=== PATIENT | male | born 1980 | race Two or more races ===

== ENCOUNTER 2019-10-24 16:25 | Inpatient (IN) | payer OTHER ==
[~2019-10-24] VITALS: Ht 188 cm; Wt 90.9 kg
[2019-10-24] MEDS ORDERED: ONDANSETRON HCL 4 MG/2 ML VIAL IVP ONE (17:15)
[2019-10-24] MEDS ORDERED: SODIUM CHLORIDE 0.9% 1,000 ML IV ONE ×2 (17:15→18:45)
[2019-10-24] MEDS ORDERED: CloNIDine 0.1 MG/24 HOUR PATCH TD ONE (17:15)
[2019-10-24] MEDS ORDERED: CloNIDine HCL 0.1 MG TABLET PO ONE (17:15)
[2019-10-24 17:28] LABS: BASOPHILS % (AUTO) 0.3 % (0.0-2.0); EOSINOPHILS % (AUTO) 0 % (1.0-6.0); HEMATOCRIT 40.9 % (41-53); HEMOGLOBIN 13.8 g/dL (13.5-17.5); LYMPHOCYTES # (AUTO) 1.3 K/uL (1.0-4.8); LYMPHOCYTES % (AUTO) 23.1 % (22.0-44.0); MEAN CORPUSCULAR HGB CONC 33.7 G/dL (31.0-37.0); MEAN CORPUSCULAR VOLUME 86 fL (80-100); MONOCYTES # (AUTO) 0.6 K/uL (0.1-1.0); MONOCYTES % (AUTO) 10.2 % (2.0-9.0); NEUTROPHILS # (AUTO) 3.7 K/uL (1.8-7.7); NEUTROPHILS % (AUTO) 66.4 % (40.0-70.0); PLATELET COUNT (AUTO) 239 K/uL (150-450); RED BLOOD CELL COUNT(AUTO) 4.76 MIL/uL (4.50-5.90); RED CELL DISTRIBUTION WIDTH 14.2 % (11.5-14.5)
[2019-10-24 17:48] LABS: ANION GAP 9 mmol/L (8-16); CALCIUM, TOTAL 9.1 mg/dL (8.8-10.5); CARBON DIOXIDE 27 mmol/L (22-29); CHLORIDE 103 mmol/L (98-107); CREATININE 0.77 mg/dL (0.60-1.30); GLOMERULAR FILTR. RATE CALC > 60 mL/min (>60); GLUCOSE,RANDOM 95 mg/dL (70-110); POTASSIUM 4.3 mmol/L (3.5-5.1); SODIUM SERUM 139 mmol/L (136-145); UREA NITROGEN, BLOOD 12 mg/dL (7-18)
[2019-10-24 18:02] LABS: ALANINE AMINOTRANSFERASE 48 U/L (12-78); ALBUMIN 3.8 g/dL (3.4-5.0); ALKALINE PHOSPHATASE 82 U/L (46-116); ASPARTATE AMINOTRANSFERASE 38 U/L (15-37); BILIRUBIN,TOTAL 0.3 mg/dL (0.1-1.0); TOTAL PROTEIN, SERUM 7.7 g/dL (6.4-8.2)
[2019-10-24] MEDS ORDERED: MAGNESIUM HYDROXIDE SUSPENSION 30 ML UDCUP PO PRN (18:30)
[2019-10-24] MEDS ORDERED: ZOLPIDEM TARTRATE 5 MG TABLET PO PRN (18:30)
[2019-10-24] MEDS ORDERED: ACETAMINOPHEN 325 MG TABLET PO PRN (18:30)
[2019-10-24] MEDS ORDERED: ONDANSETRON HCL 4 MG/2 ML VIAL IVP PRN (18:30)
[2019-10-24 18:35] VITALS: BP 138/79
[2019-10-24] MEDS ORDERED: LORazepam 2 MG/ML VIAL IVP PRN (18:45)
[2019-10-24] MEDS ORDERED: INFLUENZA VIRUS VACCINE QVS 2019-20 (3YR+)/PF 60 MCG/0.5 ML SYRINGE IM ONE (19:00)
[2019-10-24 20:18] VITALS: BP 139/83
[2019-10-25 02:01] LABS: AMPHET/METH SCREEN,URINE POSITIVE (NEGATIVE); BARBITURATE SCREEN, URINE NEGATIVE (NEGATIVE); BENZODIAZEPINES SCREEN,URINE NEGATIVE (NEGATIVE); CANNABINOID SCREEN,URINE POSITIVE (NEGATIVE); COCAINE SCREEN,URINE NEGATIVE (NEGATIVE); METHADONE SCREEN, URINE NEGATIVE (NEGATIVE); OPIATE SCREEN,URINE POSITIVE (NEGATIVE)
[2019-10-25 02:05] LABS: PHENCYCLIDINE SCREEN,URINE NEGATIVE (NEGATIVE)
[2019-10-25 04:35] VITALS: BP 148/78
[2019-10-25 08:05] VITALS: BP 144/95
[2019-10-25] MEDS: FAMOTIDINE 20 MG TABLET PO SCH (08:42)
[2019-10-25] MEDS ORDERED: ACETAMINOPHEN 325 MG TABLET PO PRN (11:45)
[2019-10-25] MEDS ORDERED: TraZODone HCL 50 MG TABLET PO PRN (11:45)
[2019-10-25] MEDS ORDERED: HydrOXYzine PAMOATE 50 MG CAPSULE PO PRN (11:45)
[2019-10-25] MEDS ORDERED: PROMETHAZINE HCL 25 MG TABLET PO PRN (11:45)
[2019-10-25] MEDS ORDERED: IBUPROFEN 600 MG TABLET PO PRN ×2 (11:45)
[2019-10-25] MEDS ORDERED: BACLOFEN 10 MG TABLET PO PRN (11:45)
[2019-10-25] MEDS ORDERED: LOPERAMIDE HCL 2 MG/15 ML SUSPENSION UDCUP PO PRN (11:45)
[2019-10-25] MEDS ORDERED: MAG HYDROX/AL HYDROX/SIMETH ES 30 ML SUSPENSION UDCUP PO PRN ×2 (11:45)
[2019-10-25] MEDS: DICYCLOMINE HCL 10 MG CAPSULE PO PRN (12:10)
[2019-10-25] MEDS: LOPERAMIDE HCL 2 MG CAPSULE PO PRN (14:37)
[2019-10-25 15:58] VITALS: BP 137/87
[2019-10-25] MEDS: LORazepam 1 MG TABLET PO PRN (17:38)
[2019-10-25 20:24] VITALS: BP 127/77
[2019-10-26] VITALS (8 sets, daily range): BP systolic 114–145; BP diastolic 71–86
[2019-10-26] MEDS: FAMOTIDINE 20 MG TABLET PO SCH (08:09)
[2019-10-26] MEDS: MULTIVITAMINS WITH MINERALS, THERAPEUTIC TABLET PO SCH (08:13)
[2019-10-26] MEDS: DICYCLOMINE HCL 10 MG CAPSULE PO PRN (08:13)
[2019-10-26] MEDS: LORazepam 1 MG TABLET PO PRN (08:13)
[2019-10-26] MEDS: LOPERAMIDE HCL 2 MG CAPSULE PO PRN (12:20)
[2019-10-27 05:07] VITALS: BP 107/67
[2019-10-27 07:53] VITALS: BP 136/76
[2019-10-27] MEDS: FAMOTIDINE 20 MG TABLET PO SCH (08:19)
[2019-10-27] MEDS: MULTIVITAMINS WITH MINERALS, THERAPEUTIC TABLET PO SCH (08:19)
[2019-10-27 11:40] VITALS: BP 136/72
== END 2019-10-27 16:15 | DRG 897 ==
LOC: EMS 16:30 → 6S 18:08
PROVIDERS: ADMIT Internal Medicine; ATTEND Internal Medicine
DX: F11.23 Opioid dependence with withdrawal (principal); F17.210 Nicotine dependence, cigarettes, uncomplicated
CPT/HCPCS: 87045; 96374; G0480; J2060; J2405; J7030

== ENCOUNTER 2023-09-21 11:07 | Inpatient (IN) | payer OTHER ==
[~2023-09-21] VITALS: Ht 188 cm; Wt 92.0 kg
[2023-09-21] MEDS ORDERED: BISMATROL PO (11:52)
[2023-09-21] MEDS ORDERED: LOPE2TAB26 PO (11:52)
[2023-09-21] MEDS ORDERED: IBUP-1493 PO (11:52)
[2023-09-21] MEDS ORDERED: PROM25SU10 PR (11:52)
[2023-09-21] MEDS ORDERED: CLON0.1T2 PO (11:52)
[2023-09-21] MEDS ORDERED: TRAZ-186 PO (11:52)
[2023-09-21 13:12] LABS: BASOPHILS % (AUTO) 0.3 % (0.0-2.0); EOSINOPHILS % (AUTO) 0 % (1.0-6.0); HEMATOCRIT 42.4 % (41-53); HEMOGLOBIN 14.8 g/dL (13.5-17.5); LYMPHOCYTES # (AUTO) 1.2 K/uL (1.0-4.8); LYMPHOCYTES % (AUTO) 11.4 % (22.0-44.0); MEAN CORPUSCULAR HEMOGLOBIN 28.9 pg (26.0-34.0); MEAN CORPUSCULAR HGB CONC 34.8 G/dL (31.0-37.0); MEAN CORPUSCULAR VOLUME 83 fL (80-100); MONOCYTES % (AUTO) 9.5 % (2.0-9.0); NEUTROPHILS # (AUTO) 8.4 K/uL (1.8-7.7); NEUTROPHILS % (AUTO) 78.8 % (40.0-70.0); PLATELET COUNT (AUTO) 255 K/uL (150-450); RED CELL DISTRIBUTION WIDTH 14.3 % (11.5-14.5); WHITE BLOOD COUNT (AUTO) 10.7 K/uL (4.5-11.0)
[2023-09-21 13:18] LABS: ANION GAP 10 mmol/L (8-16); CALCIUM, TOTAL 9.2 mg/dL (8.8-10.5); CARBON DIOXIDE 23 mmol/L (22-29); CHLORIDE 105 mmol/L (98-107); CREATININE 0.66 mg/dL (0.60-1.30); GLOMERULAR FILTR. RATE CALC > 60 mL/min (>60); GLUCOSE,RANDOM 115 mg/dL (70-110); POTASSIUM 3.8 mmol/L (3.5-5.1); SODIUM SERUM 138 mmol/L (136-145); UREA NITROGEN, BLOOD 24 mg/dL (7-18)
[2023-09-21 13:24] LABS: ALANINE AMINOTRANSFERASE 34 U/L (12-78); ALBUMIN 3.9 g/dL (3.4-5.0); ALKALINE PHOSPHATASE 60 U/L (46-116); ASPARTATE AMINOTRANSFERASE 27 U/L (15-37); BILIRUBIN,TOTAL 0.8 mg/dL (0.1-1.0); TOTAL PROTEIN, SERUM 7.3 g/dL (6.4-8.2)
[2023-09-21 13:25] LABS: ALCOHOL, BLOOD (SERUM) < 3 mg/dL (0-10)
[2023-09-21] MEDS ORDERED: BISM-157 PO (16:09)
[2023-09-21] MEDS ORDERED: ONDANSETRON HCL 4 MG/2 ML VIAL IVP PRN (16:15)
[2023-09-21] MEDS ORDERED: MAGNESIUM HYDROXIDE SUSPENSION 30 ML UDCUP PO PRN (16:15)
[2023-09-21] MEDS ORDERED: SODIUM CHLORIDE 0.9% 1,000 ML IV ONE (16:15)
[2023-09-21 20:16] VITALS: BP 136/74; PULSE 94; RESP 20; TEMP 98.5
[2023-09-22] VITALS (9 sets, daily range): BP systolic 103–134; BP diastolic 62–89; PULSE 56–150; RESP 16–51; TEMP 97.5–102.6; O2SAT 96–99
[2023-09-22 00:23] LABS: APPEARANCE,URINE CLEAR (CLEAR); BILIRUBIN,URINE NEGATIVE (NEGATIVE); COLOR,URINE LIGHT YELLOW (YELLOW); GLUCOSE, URINE (UA) NEGATIVE (NEGATIVE); LEUKOCYTE ESTERASE ,URINE NEGATIVE (NEGATIVE); NITRATE,URINE NEGATIVE (NEGATIVE); OCCULT BLOOD,URINE SMALL (NEGATIVE); PROTEIN,URINE 30-70 mg/dL (NEGATIVE); SPECIFIC GRAVITIY, URINE 1.034 (1.003-1.030); UROBILINOGEN,URINE <=1.0 mg/dL (<=1.0)
[2023-09-22 00:31] LABS: AMPHET/METH SCREEN,URINE POSITIVE (NEGATIVE); BARBITURATE SCREEN, URINE NEGATIVE (NEGATIVE); BENZODIAZEPINES SCREEN,URINE NEGATIVE (NEGATIVE); CANNABINOID SCREEN,URINE NEGATIVE (NEGATIVE); COCAINE SCREEN,URINE NEGATIVE (NEGATIVE); METHADONE SCREEN, URINE NEGATIVE (NEGATIVE); OPIATE SCREEN,URINE NEGATIVE (NEGATIVE); PHENCYCLIDINE SCREEN,URINE NEGATIVE (NEGATIVE)
[2023-09-22] MEDS: PANTOPRAZOLE SODIUM 40 MG/VIAL IVP SCH ×2 (00:33→09:00)
[2023-09-22 00:54] LABS: ALCOHOL, URINE DRUG SCREEN NEGATIVE (NEGATIVE)
[2023-09-22 00:55] LABS: BACTERIA,URINE None Seen /HPF (None Seen); RBC,URINE 0-2 /HPF (0-2); SQUAMOUS EPITHELIAL CELL,UR None Seen /LPF (None Seen); WBC,URINE None Seen /HPF (0-5)
[2023-09-22 05:33] LABS: BASOPHILS % (AUTO) 0.3 % (0.0-2.0); EOSINOPHILS % (AUTO) 0 % (1.0-6.0); HEMATOCRIT 42.2 % (41-53); HEMOGLOBIN 14.3 g/dL (13.5-17.5); LYMPHOCYTES # (AUTO) 1.6 K/uL (1.0-4.8); LYMPHOCYTES % (AUTO) 9.2 % (22.0-44.0); MEAN CORPUSCULAR HEMOGLOBIN 28.4 pg (26.0-34.0); MEAN CORPUSCULAR HGB CONC 33.8 G/dL (31.0-37.0); MEAN CORPUSCULAR VOLUME 84 fL (80-100); MONOCYTES # (AUTO) 1.9 K/uL (0.1-1.0); MONOCYTES % (AUTO) 11.1 % (2.0-9.0); NEUTROPHILS # (AUTO) 13.8 K/uL (1.8-7.7); NEUTROPHILS % (AUTO) 79.4 % (40.0-70.0); PLATELET COUNT (AUTO) 308 K/uL (150-450); RED BLOOD CELL COUNT(AUTO) 5.02 MIL/uL (4.50-5.90); RED CELL DISTRIBUTION WIDTH 14.5 % (11.5-14.5); WHITE BLOOD COUNT (AUTO) 17.3 K/uL (4.5-11.0)
[2023-09-22] MEDS: FAMOTIDINE 20 MG TABLET PO SCH (09:00)
[2023-09-22] MEDS ORDERED: SODIUM CHLORIDE 0.9% 1,000 ML IV ONE (10:30)
[2023-09-22] MEDS ORDERED: ACETAMINOPHEN 1000 MG/ISO-OSM 100 ML IV ONE (10:30)
[2023-09-22 10:41] LABS: GLUCOMETER DEV NAME(LOC) 4E.2; GLUCOSE,POINT OF CARE 127 MG/DL (70-110)
[2023-09-22] MEDS ORDERED: IBUPROFEN 800 MG TABLET PO PRN (11:00)
[2023-09-22] MEDS: PIPERACILLIN/TAZO 3.375 GM/D5W 50 ML IV SCH ×2 (11:00→23:16)
[2023-09-22] MEDS ORDERED: PROMETHAZINE HCL 25 MG RECTAL SUPPOSITORY PR PRN (11:00)
[2023-09-22] MEDS ORDERED: BISMUTH SUBSALICYLATE 525 MG/30 ML SUSPENSION UDCUP PO PRN (11:00)
[2023-09-22 11:15] LABS: LACTIC ACID 1.9 mmol/L (0.4-2.0)
[2023-09-22] MEDS ORDERED: ACETAMINOPHEN 650 MG RECTAL SUPPOSITORY PR PRN (11:45)
[2023-09-22 13:01] LABS: ABG CARBOXYHEMOGLOBIN 0.4 % (0.0-1.5); ABG HCO3 22.1 mmol/L (22.0-26.0); ABG METHEMOGLOBIN 0.1 % (0.0-1.5); ABG OXYGEN CONTENT 22.9 mL/dL (15.0-23.0); ABG OXYGEN SATURATION 98.5 % (95.0-98.0); ABG PCO2 27 mmHg (35-45); ABG PH 7.464 (7.35-7.450); ABG TOTAL HEMOGLOBIN 16.5 G/dL (12.0-18.0); ALLEN TEST, BLOOD GAS Positive; SITE, BLOOD GAS RT RADIAL; SOURCE, BLOOD GAS ARTERIAL; TEMPERATURE, FAHRENHEIT, BG 100.5 FAHREN (96.0-98.6)
[2023-09-22 13:02] LABS: ABG A-A DIFF O2 547.5 mmHg (10-20.0); O2 DEVICE,BLOOD GAS NON REBREATHER (ROOM AIR)
[2023-09-22 14:21] LABS: GLUCOMETER DEV NAME(LOC) 5N.1C; GLUCOSE,POINT OF CARE 121 MG/DL (70-110)
[2023-09-22] MEDS: LORazepam 2 MG/ML VIAL IVP PRN (14:56)
[2023-09-22 16:41] LABS: BASOPHILS % (AUTO) 0.1 % (0.0-2.0); EOSINOPHILS % (AUTO) 0.1 % (1.0-6.0); HEMOGLOBIN 15.5 g/dL (13.5-17.5); LYMPHOCYTES # (AUTO) 1.2 K/uL (1.0-4.8); LYMPHOCYTES % (AUTO) 5.7 % (22.0-44.0); MEAN CORPUSCULAR HEMOGLOBIN 28.6 pg (26.0-34.0); MEAN CORPUSCULAR HGB CONC 33.6 G/dL (31.0-37.0); MEAN CORPUSCULAR VOLUME 85 fL (80-100); MONOCYTES # (AUTO) 2.4 K/uL (0.1-1.0); MONOCYTES % (AUTO) 11.1 % (2.0-9.0); NEUTROPHILS # (AUTO) 17.7 K/uL (1.8-7.7); PLATELET COUNT (AUTO) 311 K/uL (150-450); RED CELL DISTRIBUTION WIDTH 14.5 % (11.5-14.5); WHITE BLOOD COUNT (AUTO) 21.3 K/uL (4.5-11.0)
[2023-09-22 16:49] LABS: ANION GAP 15 mmol/L (8-16); CALCIUM, TOTAL 9.7 mg/dL (8.8-10.5); CARBON DIOXIDE 21 mmol/L (22-29); CHLORIDE 110 mmol/L (98-107); CREATININE 0.99 mg/dL (0.60-1.30); GLOMERULAR FILTR. RATE CALC > 60 mL/min (>60); GLUCOSE,RANDOM 147 mg/dL (70-110); SODIUM SERUM 146 mmol/L (136-145); UREA NITROGEN, BLOOD 33 mg/dL (7-18)
[2023-09-22 16:54] LABS: ALANINE AMINOTRANSFERASE 29 U/L (12-78); ALBUMIN 4.1 g/dL (3.4-5.0); ALKALINE PHOSPHATASE 59 U/L (46-116); ASPARTATE AMINOTRANSFERASE 20 U/L (15-37); BILIRUBIN,TOTAL 1.2 mg/dL (0.1-1.0); PHOSPHORUS 4.1 mg/dL (2.5-4.9)
[2023-09-22] MEDS ORDERED: ROCURONIUM BROMIDE 10 MG/ML 5 ML VIAL ONE (17:06)
[2023-09-22 17:16] LABS: ABG BASE EXCESS -4.5 mmol/L (-2.0-3.0); ABG CARBOXYHEMOGLOBIN 1.1 % (0.0-1.5); ABG METHEMOGLOBIN 0.1 % (0.0-1.5); ABG OXYGEN CONTENT 19.3 mL/dL (15.0-23.0); ABG OXYHEMOGLOBIN 83.1 % (94.0-100.0); ABG PCO2 30 mmHg (35-45); ABG PH 7.438 (7.35-7.450); ABG TOTAL HEMOGLOBIN 16.6 G/dL (12.0-18.0); SOURCE, BLOOD GAS ARTERIAL; TEMPERATURE, FAHRENHEIT, BG 102.5 FAHREN (96.0-98.6)
[2023-09-22 17:18] LABS: ABG OXYGEN SATURATION 84.1 % (95.0-98.0); ALLEN TEST, BLOOD GAS Positive; SITE, BLOOD GAS RT RADIAL
[2023-09-22 17:19] LABS: ABG A-A DIFF O2 620.3 mmHg (10-20.0); O2 DEVICE,BLOOD GAS BIPAP (ROOM AIR)
[2023-09-22 17:20] LABS: SPONTANEOUS VT, BG 851 ml
[2023-09-22] MEDS ORDERED: PROPOFOL 1000 MG/ISO-OSM 100 ML ONE (17:54)
[2023-09-22] MEDS ORDERED: ETOMIDATE 2 MG/ML 10 ML VIAL IVP ONE (18:15)
[2023-09-22] MEDS ORDERED: PROPOFOL 1% 20 ML VIAL IVP ONE (18:15)
[2023-09-22] MEDS ORDERED: ROCURONIUM BROMIDE 10 MG/ML 5 ML VIAL IVP ONE ×2 (18:15→20:15)
[2023-09-22] MEDS ORDERED: SODIUM CHLORIDE 0.9% 500 ML IV ONE (19:41)
[2023-09-22] MEDS: PANTOPRAZOLE SODIUM 80 MG in SODIUM CHLORIDE 0.9% 100 ML IV SCH (20:41)
[2023-09-22] MEDS: CloNIDine HCL 0.1 MG TABLET PO SCH (21:24)
[2023-09-22] MEDS: ACETAMINOPHEN 325 MG TABLET PO PRN (21:24)
[2023-09-22] MEDS: PROPOFOL 1000 MG/ISO-OSM 100 ML IV PRN (22:25)
[2023-09-22] MEDS ORDERED: MIDAZOLAM HCL 2 MG/2 ML VIAL IVP PRN (22:30)
[2023-09-22] MEDS ORDERED: SODIUM CHLORIDE 0.9% 1,000 ML IV SCH (22:30)
[2023-09-22] MEDS: DEXMEDETOMIDINE HCL 400 MCG in SODIUM CHLORIDE 0.9% 96 ML IV PRN (22:40)
[2023-09-23] VITALS (18 sets, daily range): BP systolic 94–117; BP diastolic 53–79; PULSE 95–127; RESP 18–53; TEMP 98.4–102; O2SAT 90–99
[2023-09-23 01:15] LABS: BASOPHILS % (AUTO) 0.1 % (0.0-2.0); EOSINOPHILS % (AUTO) 0 % (1.0-6.0); HEMATOCRIT 45.7 % (41-53); HEMOGLOBIN 14.9 g/dL (13.5-17.5); LYMPHOCYTES # (AUTO) 2.3 K/uL (1.0-4.8); MEAN CORPUSCULAR HEMOGLOBIN 28.4 pg (26.0-34.0); MEAN CORPUSCULAR HGB CONC 32.7 G/dL (31.0-37.0); MEAN CORPUSCULAR VOLUME 87 fL (80-100); MONOCYTES # (AUTO) 2.7 K/uL (0.1-1.0); MONOCYTES % (AUTO) 13.1 % (2.0-9.0); NEUTROPHILS # (AUTO) 15.5 K/uL (1.8-7.7); NEUTROPHILS % (AUTO) 75.8 % (40.0-70.0); PLATELET COUNT (AUTO) 280 K/uL (150-450); RED BLOOD CELL COUNT(AUTO) 5.26 MIL/uL (4.50-5.90); WHITE BLOOD COUNT (AUTO) 20.5 K/uL (4.5-11.0)
[2023-09-23 01:34] LABS: ABG BASE EXCESS -4.9 mmol/L (-2.0-3.0); ABG CARBOXYHEMOGLOBIN 0.3 % (0.0-1.5); ABG HCO3 19.9 mmol/L (22.0-26.0); ABG METHEMOGLOBIN 0.2 % (0.0-1.5); ABG OXYGEN SATURATION 99.7 % (95.0-98.0); ABG OXYHEMOGLOBIN 99.2 % (94.0-100.0); ABG PCO2 59 mmHg (35-45); ABG TOTAL HEMOGLOBIN 15.8 G/dL (12.0-18.0); PO2, ARTERIAL BG 398.3 mmHg (88.0-96.0); SOURCE, BLOOD GAS ARTERIAL; TEMPERATURE, FAHRENHEIT, BG 101.2 FAHREN (96.0-98.6)
[2023-09-23 02:04] LABS: O2 DEVICE,BLOOD GAS VENTILATOR (ROOM AIR); SITE, BLOOD GAS LFT RADIAL; VT, ABG 450 ml
[2023-09-23 02:05] LABS: PEEP,BG 5 cm H2O
[2023-09-23] MEDS: PROPOFOL 1000 MG/ISO-OSM 100 ML IV PRN ×6 (03:07→22:10)
[2023-09-23] MEDS: PANTOPRAZOLE SODIUM 80 MG in SODIUM CHLORIDE 0.9% 100 ML IV SCH ×2 (04:01→15:41)
[2023-09-23] MEDS: PIPERACILLIN/TAZO 3.375 GM/D5W 50 ML IV SCH ×2 (05:08→10:49)
[2023-09-23] MEDS: DEXMEDETOMIDINE HCL 400 MCG in SODIUM CHLORIDE 0.9% 96 ML IV PRN ×2 (05:09→22:39)
[2023-09-23 06:06] LABS: BASOPHILS % (AUTO) 0.1 % (0.0-2.0); EOSINOPHILS % (AUTO) 0 % (1.0-6.0); HEMATOCRIT 40.9 % (41-53); HEMOGLOBIN 14.1 g/dL (13.5-17.5); LYMPHOCYTES # (AUTO) 1.9 K/uL (1.0-4.8); LYMPHOCYTES % (AUTO) 9.7 % (22.0-44.0); MEAN CORPUSCULAR HEMOGLOBIN 29.4 pg (26.0-34.0); MEAN CORPUSCULAR HGB CONC 34.3 G/dL (31.0-37.0); MEAN CORPUSCULAR VOLUME 86 fL (80-100); MONOCYTES # (AUTO) 1.9 K/uL (0.1-1.0); MONOCYTES % (AUTO) 9.9 % (2.0-9.0); NEUTROPHILS # (AUTO) 15.3 K/uL (1.8-7.7); NEUTROPHILS % (AUTO) 80.3 % (40.0-70.0); PLATELET COUNT (AUTO) 275 K/uL (150-450); RED BLOOD CELL COUNT(AUTO) 4.79 MIL/uL (4.50-5.90); RED CELL DISTRIBUTION WIDTH 14.9 % (11.5-14.5); WHITE BLOOD COUNT (AUTO) 19.1 K/uL (4.5-11.0)
[2023-09-23 06:13] LABS: CALCIUM, TOTAL 9.1 mg/dL (8.8-10.5); CREATININE 1.42 mg/dL (0.60-1.30)
[2023-09-23] MEDS: FentaNYL CIT 1000MCG/0.9% NACL 100 ML IV PRN ×3 (08:01→18:50)
[2023-09-23] MEDS: CloNIDine HCL 0.1 MG TABLET PO SCH ×2 (08:42→21:01)
[2023-09-23] MEDS: FAMOTIDINE 20 MG TABLET PO SCH (08:42)
[2023-09-23 08:48] LABS: HEMATOCRIT 40.6 % (41-53); HEMOGLOBIN 13.6 g/dL (13.5-17.5)
[2023-09-23] MEDS: SODIUM CHLORIDE 0.45% 1,000 ML IV SCH ×2 (09:12→21:01)
[2023-09-23] MEDS: ACETAMINOPHEN 325 MG TABLET PO PRN (09:13)
[2023-09-23] MEDS: LORazepam 2 MG/ML VIAL IVP PRN (09:13)
[2023-09-23] MEDS ORDERED: VANCOMYCIN HCL 1.25 GM in DEXTROSE 5%-WATER 250 ML IV ONE (10:30)
[2023-09-23] MEDS: MIDAZOLAM HCL 100 MG in SODIUM CHLORIDE 0.9% 180 ML IV PRN (11:38)
[2023-09-23] MEDS: ACYCLOVIR 800 MG in DEXTROSE 5%-WATER 150 ML IV SCH ×2 (15:41→22:39)
[2023-09-23] MEDS: CefTRIAXone SODIUM 2 GM in DEXTROSE 5%-WATER 50 ML IV SCH (15:41)
[2023-09-23 17:23] LABS: HEMATOCRIT 38.3 % (41-53); HEMOGLOBIN 12.7 g/dL (13.5-17.5)
[2023-09-23 17:31] LABS: ANION GAP 9 mmol/L (8-16); CARBON DIOXIDE 24 mmol/L (22-29); CHLORIDE 111 mmol/L (98-107); CREATININE 1.28 mg/dL (0.60-1.30); GLOMERULAR FILTR. RATE CALC > 60 mL/min (>60); GLUCOSE,RANDOM 130 mg/dL (70-110); POTASSIUM 4.4 mmol/L (3.5-5.1); SODIUM SERUM 144 mmol/L (136-145); UREA NITROGEN, BLOOD 52 mg/dL (7-18)
[2023-09-23] MEDS: DOXYCYCLINE HYCLATE 100 MG in DEXTROSE 5%-WATER 100 ML IV SCH (18:06)
[2023-09-23] MEDS: MetroNIDAZOLE 500 MG/NACL 100 ML IV SCH (18:06)
[2023-09-23] MEDS: RINGERS SOLUTION,LACTATED 1,000 ML IV SCH (18:50)
[2023-09-23] MEDS ORDERED: LIDOCAINE/PF 1% 5 ML VIAL ONE (18:58)
[2023-09-23] MEDS ORDERED: LIDOCAINE/PF 1% 5 ML VIAL SQ ONE (19:30)
[2023-09-23] MEDS: VANCOMYCIN 1GM/WATER(PEG/NADA) 200 ML IV SCH (21:00)
[2023-09-23] MEDS ORDERED: SODIUM CHLORIDE 0.9% 500 ML IV ONE (22:42)
[2023-09-24] VITALS (20 sets, daily range): BP systolic 89–122; BP diastolic 46–84; PULSE 70–118; RESP 19–32; TEMP 97.1–100.1; O2SAT 93–100
[2023-09-24] MEDS: ACETAMINOPHEN 325 MG TABLET PO PRN ×2 (00:35→23:11)
[2023-09-24] MEDS: PANTOPRAZOLE SODIUM 80 MG in SODIUM CHLORIDE 0.9% 100 ML IV SCH ×3 (01:14→18:19)
[2023-09-24] MEDS: FentaNYL CIT 1000MCG/0.9% NACL 100 ML IV PRN ×5 (02:01→23:07)
[2023-09-24] MEDS: MetroNIDAZOLE 500 MG/NACL 100 ML IV SCH ×2 (02:06→08:56)
[2023-09-24] MEDS: MIDAZOLAM HCL 100 MG in SODIUM CHLORIDE 0.9% 180 ML IV PRN ×2 (03:13→18:18)
[2023-09-24] MEDS: CefTRIAXone SODIUM 2 GM in DEXTROSE 5%-WATER 50 ML IV SCH (03:13)
[2023-09-24] MEDS: PROPOFOL 1000 MG/ISO-OSM 100 ML IV PRN ×5 (03:26→23:06)
[2023-09-24] MEDS: DOXYCYCLINE HYCLATE 100 MG in DEXTROSE 5%-WATER 100 ML IV SCH ×2 (04:17→20:54)
[2023-09-24] MEDS: LORazepam 2 MG/ML VIAL IVP PRN ×4 (05:14→23:07)
[2023-09-24] MEDS: ACYCLOVIR 800 MG in DEXTROSE 5%-WATER 150 ML IV SCH ×4 (05:15→20:57)
[2023-09-24 06:01] LABS: HEMATOCRIT 32.7 % (41-53); HEMOGLOBIN 11.1 g/dL (13.5-17.5)
[2023-09-24 06:18] LABS: INR 1.1 (0.9-1.1); PROTHROMBIN TIME 11.7 SEC (9.4-11.6)
[2023-09-24 06:20] LABS: ANION GAP 8 mmol/L (8-16); CALCIUM, TOTAL 8.9 mg/dL (8.8-10.5); CARBON DIOXIDE 26 mmol/L (22-29); CHLORIDE 111 mmol/L (98-107); CREATININE 1.04 mg/dL (0.60-1.30); GLOMERULAR FILTR. RATE CALC > 60 mL/min (>60); GLUCOSE,RANDOM 130 mg/dL (70-110); POTASSIUM 4.3 mmol/L (3.5-5.1); SODIUM SERUM 145 mmol/L (136-145); UREA NITROGEN, BLOOD 42 mg/dL (7-18)
[2023-09-24] MEDS: RINGERS SOLUTION,LACTATED 1,000 ML IV SCH ×2 (08:52→21:37)
[2023-09-24] MEDS: CloNIDine HCL 0.1 MG TABLET PO SCH (08:56)
[2023-09-24] MEDS: FAMOTIDINE 20 MG TABLET PO SCH (08:57)
[2023-09-24] MEDS: SODIUM CHLORIDE 0.45% 1,000 ML IV SCH (09:45)
[2023-09-24] MEDS: VANCOMYCIN 1GM/WATER(PEG/NADA) 200 ML IV SCH ×3 (09:46→23:07)
[2023-09-24] MEDS: DEXMEDETOMIDINE HCL 400 MCG in SODIUM CHLORIDE 0.9% 96 ML IV PRN ×3 (11:33→23:39)
[2023-09-24 14:12] LABS: HEMATOCRIT 28.8 % (41-53); HEMOGLOBIN 9.9 g/dL (13.5-17.5)
[2023-09-24 14:41] LABS: APPEARANCE,CSF CLEAR (CLEAR); COLOR,CSF COLORLESS (COLORLESS); CSF TUBE NUMBER 1; NEUTROPHILS1,CSF 0 %
[2023-09-24 14:42] LABS: APPEARANCE2,CSF CLEAR (CLEAR); COLOR2,CSF COLORLESS (COLORLESS); CSF 2ND TUBE NUMBER 4; LYMPHOCYTES2,CSF 0 %; MONOCYTES2,CSF 0 %; NEUTROPHILS2,CSF 0 %
[2023-09-24 14:42] LABS: LYMPHOCYTES1,CSF 0 %; MONOCYTES1,CSF 0 %
[2023-09-24 14:43] LABS: OTHER CELLS,CSF 2ND 0
[2023-09-24 14:45] LABS: TOTAL PROTEIN, CSF 46 mg/dL (15-45)
[2023-09-24] MEDS ORDERED: LIDOCAINE/PF 1% 30 ML VIAL ONE (15:14)
[2023-09-24] MEDS ORDERED: LIDOCAINE 1% 30 ML/SOD BICARB 8.4% 4 ML SQ ONE (16:30)
[2023-09-24] MEDS: MetroNIDAZOLE 500 MG TABLET PO SCH ×2 (17:21→23:07)
[2023-09-24] MEDS ORDERED: SODIUM CHLORIDE 0.9% 250 ML IV ONE ×2 (20:35→21:15)
[2023-09-24] MEDS: DOXYCYCLINE HYCLATE 100 MG TABLET PO SCH (20:57)
[2023-09-24 21:01] LABS: HEMATOCRIT 27.3 % (41-53); HEMOGLOBIN 9.4 g/dL (13.5-17.5)
[2023-09-25] VITALS (16 sets, daily range): BP systolic 102–165; BP diastolic 53–88; PULSE 74–103; RESP 24–37; TEMP 98–101.2; O2SAT 98–100
[2023-09-25] MEDS: LORazepam 2 MG/ML VIAL IVP PRN (03:05)
[2023-09-25] MEDS: AMPICILLIN SODIUM/SULBACTAM NA 3 GM in SODIUM CHLORIDE 0.9% 100 ML IV SCH ×4 (03:10→20:56)
[2023-09-25] MEDS: ACETAMINOPHEN 325 MG TABLET PO PRN (03:21)
[2023-09-25] MEDS: PANTOPRAZOLE SODIUM 80 MG in SODIUM CHLORIDE 0.9% 100 ML IV SCH ×2 (04:03→14:03)
[2023-09-25] MEDS: PROPOFOL 1000 MG/ISO-OSM 100 ML IV PRN ×6 (04:59→22:51)
[2023-09-25] MEDS: ACYCLOVIR 800 MG in DEXTROSE 5%-WATER 150 ML IV SCH ×3 (04:59→22:07)
[2023-09-25] MEDS: FentaNYL CIT 1000MCG/0.9% NACL 100 ML IV PRN ×4 (05:00→18:45)
[2023-09-25] MEDS: DEXMEDETOMIDINE HCL 400 MCG in SODIUM CHLORIDE 0.9% 96 ML IV PRN (05:09)
[2023-09-25 05:17] LABS: BASOPHILS % (AUTO) 0.1 % (0.0-2.0); EOSINOPHILS % (AUTO) 2.1 % (1.0-6.0); HEMATOCRIT 28.3 % (41-53); HEMOGLOBIN 9.8 g/dL (13.5-17.5); LYMPHOCYTES # (AUTO) 0.7 K/uL (1.0-4.8); LYMPHOCYTES % (AUTO) 8.8 % (22.0-44.0); MEAN CORPUSCULAR HEMOGLOBIN 29.4 pg (26.0-34.0); MEAN CORPUSCULAR HGB CONC 34.7 G/dL (31.0-37.0); MEAN CORPUSCULAR VOLUME 85 fL (80-100); MONOCYTES # (AUTO) 0.7 K/uL (0.1-1.0); NEUTROPHILS # (AUTO) 6.8 K/uL (1.8-7.7); PLATELET COUNT (AUTO) 177 K/uL (150-450); RED BLOOD CELL COUNT(AUTO) 3.34 MIL/uL (4.50-5.90); RED CELL DISTRIBUTION WIDTH 14.4 % (11.5-14.5); WHITE BLOOD COUNT (AUTO) 8.4 K/uL (4.5-11.0)
[2023-09-25 05:32] LABS: ALANINE AMINOTRANSFERASE 26 U/L (12-78); ALBUMIN 2.1 g/dL (3.4-5.0); ALKALINE PHOSPHATASE 45 U/L (46-116); ANION GAP 7 mmol/L (8-16); ASPARTATE AMINOTRANSFERASE 44 U/L (15-37); BILIRUBIN,TOTAL 0.3 mg/dL (0.1-1.0); C-REACTIVE PROTEIN QUANT 13.61 mg/dL (0.00-0.30); CALCIUM, TOTAL 8.2 mg/dL (8.8-10.5); CARBON DIOXIDE 26 mmol/L (22-29); CHLORIDE 111 mmol/L (98-107); GLOMERULAR FILTR. RATE CALC > 60 mL/min (>60); GLUCOSE,RANDOM 104 mg/dL (70-110); POTASSIUM 3.5 mmol/L (3.5-5.1); SODIUM SERUM 144 mmol/L (136-145); TOTAL PROTEIN, SERUM 5.5 g/dL (6.4-8.2); UREA NITROGEN, BLOOD 23 mg/dL (7-18)
[2023-09-25] MEDS: VANCOMYCIN HCL 1.5 GM in DEXTROSE 5%-WATER 250 ML IV SCH ×2 (08:41→16:34)
[2023-09-25] MEDS: DOXYCYCLINE HYCLATE 100 MG TABLET PO SCH ×2 (08:42→20:52)
[2023-09-25] MEDS: FAMOTIDINE 20 MG TABLET PO SCH (08:42)
[2023-09-25] MEDS: MetroNIDAZOLE 500 MG TABLET PO SCH (08:42)
[2023-09-25] MEDS: RINGERS SOLUTION,LACTATED 1,000 ML IV SCH (10:49)
[2023-09-25] MEDS: MIDAZOLAM HCL 100 MG in SODIUM CHLORIDE 0.9% 180 ML IV PRN (10:51)
[2023-09-25 16:11] LABS: HEMATOCRIT 31.3 % (41-53); HEMOGLOBIN 10.6 g/dL (13.5-17.5)
[2023-09-25 18:06] LABS: S PNEUMO SOURCE Urine; STREP PNEUMONIAE AG URINE Negative (Negative)
[2023-09-25 22:20] LABS: HEMATOCRIT 28.9 % (41-53); HEMOGLOBIN 10.1 g/dL (13.5-17.5)
[2023-09-26] VITALS (15 sets, daily range): BP systolic 117–153; BP diastolic 72–91; PULSE 63–110; RESP 13–34; TEMP 99.5–101; O2SAT 93–99
[2023-09-26] MEDS: RINGERS SOLUTION,LACTATED 1,000 ML IV SCH ×2 (00:36→14:22)
[2023-09-26] MEDS: VANCOMYCIN HCL 1.5 GM in DEXTROSE 5%-WATER 250 ML IV SCH ×2 (00:38→18:18)
[2023-09-26] MEDS: PANTOPRAZOLE SODIUM 80 MG in SODIUM CHLORIDE 0.9% 100 ML IV SCH ×3 (01:16→22:09)
[2023-09-26] MEDS: ACETAMINOPHEN 325 MG TABLET PO PRN ×3 (02:01→20:50)
[2023-09-26] MEDS: FentaNYL CIT 1000MCG/0.9% NACL 100 ML IV PRN ×4 (02:52→22:26)
[2023-09-26] MEDS: PROPOFOL 1000 MG/ISO-OSM 100 ML IV PRN ×6 (03:34→22:27)
[2023-09-26] MEDS: AMPICILLIN SODIUM/SULBACTAM NA 3 GM in SODIUM CHLORIDE 0.9% 100 ML IV SCH ×4 (03:56→20:46)
[2023-09-26] MEDS: MIDAZOLAM HCL 100 MG in SODIUM CHLORIDE 0.9% 180 ML IV PRN ×2 (04:11→18:19)
[2023-09-26] MEDS: ACYCLOVIR 800 MG in DEXTROSE 5%-WATER 150 ML IV SCH ×3 (06:14→23:19)
[2023-09-26 06:54] LABS: BASOPHILS % (AUTO) 0.4 % (0.0-2.0); EOSINOPHILS % (AUTO) 3.2 % (1.0-6.0); HEMATOCRIT 28.1 % (41-53); HEMOGLOBIN 9.7 g/dL (13.5-17.5); LYMPHOCYTES # (AUTO) 1.1 K/uL (1.0-4.8); LYMPHOCYTES % (AUTO) 15.6 % (22.0-44.0); MEAN CORPUSCULAR HEMOGLOBIN 29.5 pg (26.0-34.0); MEAN CORPUSCULAR HGB CONC 34.7 G/dL (31.0-37.0); MEAN CORPUSCULAR VOLUME 85 fL (80-100); MONOCYTES # (AUTO) 0.6 K/uL (0.1-1.0); MONOCYTES % (AUTO) 8.2 % (2.0-9.0); NEUTROPHILS % (AUTO) 72.6 % (40.0-70.0); PLATELET COUNT (AUTO) 216 K/uL (150-450); RED BLOOD CELL COUNT(AUTO) 3.31 MIL/uL (4.50-5.90); RED CELL DISTRIBUTION WIDTH 14.2 % (11.5-14.5); WHITE BLOOD COUNT (AUTO) 6.9 K/uL (4.5-11.0)
[2023-09-26 07:26] LABS: ANION GAP 7 mmol/L (8-16); CARBON DIOXIDE 30 mmol/L (22-29); CHLORIDE 105 mmol/L (98-107); CREATININE 0.55 mg/dL (0.60-1.30); GLOMERULAR FILTR. RATE CALC > 60 mL/min (>60); GLUCOSE,RANDOM 92 mg/dL (70-110); SODIUM SERUM 142 mmol/L (136-145); UREA NITROGEN, BLOOD 7 mg/dL (7-18)
[2023-09-26 07:48] LABS: POTASSIUM 2.6 mmol/L (3.5-5.1)
[2023-09-26] MEDS ORDERED: POTASSIUM CHLORIDE 10% 40 MEQ/30 ML LIQUID UDCUP NG PRN (08:00)
[2023-09-26] MEDS ORDERED: POTASSIUM CHLORIDE 20 MEQ ER TABLET PO PRN ×2 (08:00)
[2023-09-26] MEDS ORDERED: WATER IV ONE (09:00)
[2023-09-26] MEDS ORDERED: VANCOMYCIN HCL IV ONE (09:00)
[2023-09-26] MEDS ORDERED: DEXTROSE 5% IV ONE (09:00)
[2023-09-26] MEDS: FAMOTIDINE 20 MG TABLET PO SCH (09:12)
[2023-09-26] MEDS: DOXYCYCLINE HYCLATE 100 MG TABLET PO SCH ×2 (09:13→20:51)
[2023-09-26] MEDS: POTASSIUM CHL 10 MEQ/WATER 50 ML IV PRN ×7 (09:14→22:40)
[2023-09-26] MEDS ORDERED: SODIUM CHLORIDE 0.9% 250 ML IV ONE (20:38)
[2023-09-26 21:22] LABS: ABG BASE EXCESS 8.5 mmol/L (-2.0-3.0); ABG CARBOXYHEMOGLOBIN 0.3 % (0.0-1.5); ABG HCO3 31.6 mmol/L (22.0-26.0); ABG METHEMOGLOBIN 0.3 % (0.0-1.5); ABG OXYGEN CONTENT 14.5 mL/dL (15.0-23.0); ABG OXYHEMOGLOBIN 93.4 % (94.0-100.0); ABG PCO2 40 mmHg (35-45); ABG PH 7.518 (7.35-7.450); ALLEN TEST, BLOOD GAS Positive; PO2, ARTERIAL BG 69.9 mmHg (88.0-96.0); SITE, BLOOD GAS RT RADIAL; SOURCE, BLOOD GAS ARTERIAL; TEMPERATURE, FAHRENHEIT, BG 98.6 FAHREN (96.0-98.6)
[2023-09-26 21:23] LABS: O2 DEVICE,BLOOD GAS VENTILATOR (ROOM AIR); PEEP,BG 0 cm H2O; VT, ABG 450 ml
[2023-09-27] VITALS (14 sets, daily range): BP systolic 120–137; BP diastolic 71–83; PULSE 97–114; RESP 24–36; TEMP 98.9–100.9; O2SAT 91–97
[2023-09-27] MEDS: VANCOMYCIN HCL 1.5 GM in DEXTROSE 5%-WATER 250 ML IV SCH ×3 (00:50→12:49)
[2023-09-27] MEDS: PROPOFOL 1000 MG/ISO-OSM 100 ML IV PRN ×7 (02:00→23:59)
[2023-09-27] MEDS ORDERED: SODIUM CHLORIDE 0.9% 250 ML IV ONE (03:18)
[2023-09-27] MEDS: POTASSIUM CHL 10 MEQ/WATER 50 ML IV PRN ×3 (03:20→04:30)
[2023-09-27] MEDS: RINGERS SOLUTION,LACTATED 1,000 ML IV SCH (03:49)
[2023-09-27] MEDS: FentaNYL CIT 1000MCG/0.9% NACL 100 ML IV PRN ×3 (03:56→16:21)
[2023-09-27] MEDS: AMPICILLIN SODIUM/SULBACTAM NA 3 GM in SODIUM CHLORIDE 0.9% 100 ML IV SCH ×4 (04:03→21:13)
[2023-09-27 05:21] LABS: BASOPHILS % (AUTO) 0.4 % (0.0-2.0); EOSINOPHILS % (AUTO) 3.4 % (1.0-6.0); HEMATOCRIT 28.3 % (41-53); HEMOGLOBIN 9.9 g/dL (13.5-17.5); LYMPHOCYTES # (AUTO) 1.1 K/uL (1.0-4.8); LYMPHOCYTES % (AUTO) 14.8 % (22.0-44.0); MEAN CORPUSCULAR HEMOGLOBIN 29.6 pg (26.0-34.0); MEAN CORPUSCULAR HGB CONC 35.1 G/dL (31.0-37.0); MEAN CORPUSCULAR VOLUME 85 fL (80-100); MONOCYTES # (AUTO) 0.6 K/uL (0.1-1.0); MONOCYTES % (AUTO) 8.5 % (2.0-9.0); NEUTROPHILS # (AUTO) 5.5 K/uL (1.8-7.7); NEUTROPHILS % (AUTO) 72.9 % (40.0-70.0); PLATELET COUNT (AUTO) 251 K/uL (150-450); RED BLOOD CELL COUNT(AUTO) 3.35 MIL/uL (4.50-5.90); RED CELL DISTRIBUTION WIDTH 14.4 % (11.5-14.5); WHITE BLOOD COUNT (AUTO) 7.5 K/uL (4.5-11.0)
[2023-09-27] MEDS: ACYCLOVIR 800 MG in DEXTROSE 5%-WATER 150 ML IV SCH ×3 (05:24→22:45)
[2023-09-27 05:37] LABS: ANION GAP 2 mmol/L (8-16); CALCIUM, TOTAL 8.1 mg/dL (8.8-10.5); CARBON DIOXIDE 34 mmol/L (22-29); CHLORIDE 106 mmol/L (98-107); CREATININE 0.49 mg/dL (0.60-1.30); GLOMERULAR FILTR. RATE CALC > 60 mL/min (>60); GLUCOSE,RANDOM 114 mg/dL (70-110); POTASSIUM 3.6 mmol/L (3.5-5.1); SODIUM SERUM 142 mmol/L (136-145); UREA NITROGEN, BLOOD 9 mg/dL (7-18); VANCOMYCIN,RANDOM 24.4 mcg/mL (25.0-50.0)
[2023-09-27] MEDS: PANTOPRAZOLE SODIUM 80 MG in SODIUM CHLORIDE 0.9% 100 ML IV SCH ×2 (07:13→16:21)
[2023-09-27] MEDS: FAMOTIDINE 20 MG TABLET PO SCH (08:46)
[2023-09-27] MEDS: DOXYCYCLINE HYCLATE 100 MG TABLET PO SCH ×2 (08:46→20:16)
[2023-09-27] MEDS: LORazepam 2 MG/ML VIAL IVP PRN (10:04)
[2023-09-27] MEDS: ACETAMINOPHEN 325 MG TABLET PO PRN ×2 (10:04→21:19)
[2023-09-27] MEDS: MIDAZOLAM HCL 100 MG in SODIUM CHLORIDE 0.9% 180 ML IV PRN (12:52)
[2023-09-27 16:37] LABS: % IRON SATURATION 16.1 % (30-44)
[2023-09-28] VITALS (14 sets, daily range): BP systolic 97–136; BP diastolic 53–94; PULSE 89–123; RESP 22–36; TEMP 99.1–100.5; O2SAT 89–98
[2023-09-28] MEDS: VANCOMYCIN HCL 1.5 GM in DEXTROSE 5%-WATER 250 ML IV SCH ×3 (00:09→17:06)
[2023-09-28] MEDS: MIDAZOLAM HCL 100 MG in SODIUM CHLORIDE 0.9% 180 ML IV PRN ×2 (00:17→14:53)
[2023-09-28] MEDS: RINGERS SOLUTION,LACTATED 1,000 ML IV SCH ×2 (01:54→22:03)
[2023-09-28 02:30] LABS: APPEARANCE,URINE CLEAR (CLEAR); BILIRUBIN,URINE NEGATIVE (NEGATIVE); COLOR,URINE LIGHT YELLOW (YELLOW); GLUCOSE, URINE (UA) NEGATIVE (NEGATIVE); KETONES,URINE NEGATIVE (NEGATIVE); LEUKOCYTE ESTERASE ,URINE NEGATIVE (NEGATIVE); NITRATE,URINE NEGATIVE (NEGATIVE); OCCULT BLOOD,URINE NEGATIVE (NEGATIVE); PROTEIN,URINE 30-70 mg/dL (NEGATIVE); SPECIFIC GRAVITIY, URINE 1.017 (1.003-1.030); UROBILINOGEN,URINE <=1.0 mg/dL (<=1.0)
[2023-09-28 02:45] LABS: BACTERIA,URINE None Seen /HPF (None Seen); RBC,URINE None Seen /HPF (0-2); SQUAMOUS EPITHELIAL CELL,UR None Seen /LPF (None Seen); WBC,URINE 0-2 /HPF (0-5)
[2023-09-28] MEDS: PANTOPRAZOLE SODIUM 80 MG in SODIUM CHLORIDE 0.9% 100 ML IV SCH ×3 (02:47→23:16)
[2023-09-28] MEDS: FentaNYL CIT 1000MCG/0.9% NACL 100 ML IV PRN ×4 (02:57→23:00)
[2023-09-28] MEDS: AMPICILLIN SODIUM/SULBACTAM NA 3 GM in SODIUM CHLORIDE 0.9% 100 ML IV SCH ×4 (02:58→22:09)
[2023-09-28] MEDS: PROPOFOL 1000 MG/ISO-OSM 100 ML IV PRN ×5 (03:39→22:59)
[2023-09-28] MEDS: ACYCLOVIR 800 MG in DEXTROSE 5%-WATER 150 ML IV SCH ×3 (05:30→22:09)
[2023-09-28 05:52] LABS: BASOPHILS % (AUTO) 0.4 % (0.0-2.0); EOSINOPHILS % (AUTO) 3.3 % (1.0-6.0); HEMATOCRIT 29.6 % (41-53); HEMOGLOBIN 10.3 g/dL (13.5-17.5); LYMPHOCYTES # (AUTO) 1.1 K/uL (1.0-4.8); LYMPHOCYTES % (AUTO) 11.3 % (22.0-44.0); MEAN CORPUSCULAR HEMOGLOBIN 29.4 pg (26.0-34.0); MEAN CORPUSCULAR HGB CONC 34.7 G/dL (31.0-37.0); MEAN CORPUSCULAR VOLUME 85 fL (80-100); MONOCYTES % (AUTO) 10.1 % (2.0-9.0); NEUTROPHILS # (AUTO) 7.4 K/uL (1.8-7.7); NEUTROPHILS % (AUTO) 74.9 % (40.0-70.0); PLATELET COUNT (AUTO) 299 K/uL (150-450); RED BLOOD CELL COUNT(AUTO) 3.49 MIL/uL (4.50-5.90); RED CELL DISTRIBUTION WIDTH 14.3 % (11.5-14.5); WHITE BLOOD COUNT (AUTO) 9.8 K/uL (4.5-11.0)
[2023-09-28 06:05] LABS: ANION GAP 9 mmol/L (8-16); CALCIUM, TOTAL 8.4 mg/dL (8.8-10.5); CARBON DIOXIDE 30 mmol/L (22-29); CHLORIDE 107 mmol/L (98-107); CREATININE 0.55 mg/dL (0.60-1.30); GLOMERULAR FILTR. RATE CALC > 60 mL/min (>60); GLUCOSE,RANDOM 97 mg/dL (70-110); POTASSIUM 3.8 mmol/L (3.5-5.1); SODIUM SERUM 146 mmol/L (136-145); UREA NITROGEN, BLOOD 12 mg/dL (7-18)
[2023-09-28] MEDS: LORazepam 2 MG/ML VIAL IVP PRN ×4 (07:28→22:11)
[2023-09-28] MEDS: DEXMEDETOMIDINE HCL 400 MCG in SODIUM CHLORIDE 0.9% 96 ML IV PRN ×2 (08:16→16:06)
[2023-09-28] MEDS: FAMOTIDINE 20 MG TABLET PO SCH (09:00)
[2023-09-28] MEDS: DOXYCYCLINE HYCLATE 100 MG TABLET PO SCH ×2 (09:00→22:09)
[2023-09-28] MEDS: QUEtiapine FUMARATE 50 MG ER TABLET PO SCH ×2 (09:20→22:09)
[2023-09-28 11:06] LABS: WEST NILE VIRUS IGM CSF Negative (Negative)
[2023-09-29] VITALS (15 sets, daily range): BP systolic 109–147; BP diastolic 53–87; PULSE 88–127; RESP 19–35; TEMP 98.4–100.5; O2SAT 5–100
[2023-09-29] MEDS: VANCOMYCIN HCL 1.5 GM in DEXTROSE 5%-WATER 250 ML IV SCH ×3 (00:04→16:04)
[2023-09-29] MEDS ORDERED: SODIUM CHLORIDE 0.9% 500 ML IV ONE (00:09)
[2023-09-29] MEDS: LORazepam 2 MG/ML VIAL IVP PRN ×4 (03:12→19:00)
[2023-09-29] MEDS: DEXMEDETOMIDINE HCL 400 MCG in SODIUM CHLORIDE 0.9% 96 ML IV PRN ×4 (03:16→22:01)
[2023-09-29] MEDS: PROPOFOL 1000 MG/ISO-OSM 100 ML IV PRN ×4 (03:35→22:11)
[2023-09-29] MEDS: AMPICILLIN SODIUM/SULBACTAM NA 3 GM in SODIUM CHLORIDE 0.9% 100 ML IV SCH ×4 (03:36→21:20)
[2023-09-29] MEDS: FentaNYL CIT 1000MCG/0.9% NACL 100 ML IV PRN ×3 (04:33→16:49)
[2023-09-29] MEDS: ACYCLOVIR 800 MG in DEXTROSE 5%-WATER 150 ML IV SCH ×3 (05:17→21:19)
[2023-09-29 06:09] LABS: BASOPHILS % (AUTO) 0.3 % (0.0-2.0); EOSINOPHILS % (AUTO) 3.9 % (1.0-6.0); HEMATOCRIT 48.7 % (41-53); HEMOGLOBIN 16.1 g/dL (13.5-17.5); LYMPHOCYTES # (AUTO) 0.9 K/uL (1.0-4.8); LYMPHOCYTES % (AUTO) 15.6 % (22.0-44.0); MEAN CORPUSCULAR HEMOGLOBIN 28.2 pg (26.0-34.0); MEAN CORPUSCULAR HGB CONC 33.1 G/dL (31.0-37.0); MEAN CORPUSCULAR VOLUME 85 fL (80-100); MONOCYTES # (AUTO) 0.8 K/uL (0.1-1.0); MONOCYTES % (AUTO) 14.4 % (2.0-9.0); NEUTROPHILS # (AUTO) 3.7 K/uL (1.8-7.7); NEUTROPHILS % (AUTO) 65.8 % (40.0-70.0); RED BLOOD CELL COUNT(AUTO) 5.72 MIL/uL (4.50-5.90); RED CELL DISTRIBUTION WIDTH 14.4 % (11.5-14.5); WHITE BLOOD COUNT (AUTO) 5.7 K/uL (4.5-11.0)
[2023-09-29 06:11] LABS: PLATELET COUNT (AUTO) 200 K/uL (150-450)
[2023-09-29 06:18] LABS: ANION GAP 8 mmol/L (8-16); CALCIUM, TOTAL 8.5 mg/dL (8.8-10.5); CARBON DIOXIDE 30 mmol/L (22-29); CHLORIDE 107 mmol/L (98-107); CREATININE 0.53 mg/dL (0.60-1.30); GLOMERULAR FILTR. RATE CALC > 60 mL/min (>60); GLUCOSE,RANDOM 90 mg/dL (70-110); POTASSIUM 4.6 mmol/L (3.5-5.1); SODIUM SERUM 145 mmol/L (136-145); UREA NITROGEN, BLOOD 13 mg/dL (7-18); VANCOMYCIN,RANDOM 18.4 mcg/mL (25.0-50.0)
[2023-09-29] MEDS: DOXYCYCLINE HYCLATE 100 MG TABLET PO SCH ×2 (08:02→20:28)
[2023-09-29] MEDS: FAMOTIDINE 20 MG TABLET PO SCH (08:02)
[2023-09-29] MEDS: QUEtiapine FUMARATE 50 MG ER TABLET PO SCH ×4 (08:02→20:26)
[2023-09-29] MEDS: MIDAZOLAM HCL 100 MG in SODIUM CHLORIDE 0.9% 180 ML IV PRN ×2 (08:03→20:51)
[2023-09-29] MEDS: PANTOPRAZOLE SODIUM 80 MG in SODIUM CHLORIDE 0.9% 100 ML IV SCH (08:05)
[2023-09-29] MEDS: PANTOPRAZOLE SODIUM 40 MG/VIAL IVP SCH ×2 (13:45→20:26)
[2023-09-29 14:52] LABS: PROTHROMBIN TIME 10.8 SEC (9.4-11.6)
[2023-09-29 14:53] LABS: ALBUMIN 2.1 g/dL (3.4-5.0); BILIRUBIN,DIRECT 0.1 mg/dL (0.00-0.20); BILIRUBIN,TOTAL 0.3 mg/dL (0.1-1.0); TOTAL PROTEIN, SERUM 6.2 g/dL (6.4-8.2)
[2023-09-29] MEDS: RINGERS SOLUTION,LACTATED 1,000 ML IV SCH (18:59)
[2023-09-29] MEDS: ACETAMINOPHEN 325 MG TABLET PO PRN (20:27)
[2023-09-30] VITALS (14 sets, daily range): BP systolic 105–127; BP diastolic 55–75; PULSE 83–109; RESP 23–38; TEMP 98.8–100.9; O2SAT 89–98
[2023-09-30] MEDS: VANCOMYCIN HCL 1.5 GM in DEXTROSE 5%-WATER 250 ML IV SCH ×2 (00:41→09:08)
[2023-09-30] MEDS: LORazepam 2 MG/ML VIAL IVP PRN ×3 (00:41→21:12)
[2023-09-30] MEDS: PROPOFOL 1000 MG/ISO-OSM 100 ML IV PRN ×6 (02:23→22:56)
[2023-09-30] MEDS: AMPICILLIN SODIUM/SULBACTAM NA 3 GM in SODIUM CHLORIDE 0.9% 100 ML IV SCH ×4 (04:33→22:26)
[2023-09-30] MEDS: DEXMEDETOMIDINE HCL 400 MCG in SODIUM CHLORIDE 0.9% 96 ML IV PRN ×4 (04:33→21:42)
[2023-09-30 06:22] LABS: BASOPHILS % (AUTO) 0.2 % (0.0-2.0); EOSINOPHILS % (AUTO) 2.6 % (1.0-6.0); HEMATOCRIT 28.1 % (41-53); HEMOGLOBIN 9.6 g/dL (13.5-17.5); LYMPHOCYTES # (AUTO) 0.9 K/uL (1.0-4.8); LYMPHOCYTES % (AUTO) 11.5 % (22.0-44.0); MEAN CORPUSCULAR HEMOGLOBIN 29.2 pg (26.0-34.0); MEAN CORPUSCULAR HGB CONC 34.2 G/dL (31.0-37.0); MEAN CORPUSCULAR VOLUME 85 fL (80-100); MONOCYTES # (AUTO) 0.8 K/uL (0.1-1.0); MONOCYTES % (AUTO) 10.2 % (2.0-9.0); NEUTROPHILS # (AUTO) 6.2 K/uL (1.8-7.7); NEUTROPHILS % (AUTO) 75.5 % (40.0-70.0); PLATELET COUNT (AUTO) 276 K/uL (150-450); RED BLOOD CELL COUNT(AUTO) 3.29 MIL/uL (4.50-5.90); RED CELL DISTRIBUTION WIDTH 14.2 % (11.5-14.5); WHITE BLOOD COUNT (AUTO) 8.2 K/uL (4.5-11.0)
[2023-09-30 06:30] LABS: ANION GAP 7 mmol/L (8-16); CALCIUM, TOTAL 8.7 mg/dL (8.8-10.5); CARBON DIOXIDE 32 mmol/L (22-29); CHLORIDE 109 mmol/L (98-107); CREATININE 0.57 mg/dL (0.60-1.30); GLOMERULAR FILTR. RATE CALC > 60 mL/min (>60); GLUCOSE,RANDOM 105 mg/dL (70-110); POTASSIUM 3.5 mmol/L (3.5-5.1); SODIUM SERUM 148 mmol/L (136-145); UREA NITROGEN, BLOOD 17 mg/dL (7-18)
[2023-09-30] MEDS: ACYCLOVIR 800 MG in DEXTROSE 5%-WATER 150 ML IV SCH ×2 (06:34→13:51)
[2023-09-30] MEDS: FentaNYL CIT 1000MCG/0.9% NACL 100 ML IV PRN ×2 (07:32→17:14)
[2023-09-30] MEDS: FAMOTIDINE 20 MG TABLET PO SCH (09:09)
[2023-09-30] MEDS: QUEtiapine FUMARATE 50 MG ER TABLET PO SCH ×4 (09:09→21:12)
[2023-09-30] MEDS: DOXYCYCLINE HYCLATE 100 MG TABLET PO SCH (09:09)
[2023-09-30] MEDS: PANTOPRAZOLE SODIUM 40 MG/VIAL IVP SCH ×2 (09:09→21:11)
[2023-09-30] MEDS: MIDAZOLAM HCL 100 MG in SODIUM CHLORIDE 0.9% 180 ML IV PRN ×2 (09:10→20:45)
[2023-09-30 11:54] LABS: CSF CRYPTO. NEOFORMANS PCR Not Detected (Not Detected); CSF CYTOMEGALOVIRUS PCR Not Detected (Not Detected); CSF ENTEROVIRUS PCR Not Detected (Not Detected); CSF ESCHERIHIA COLI K1 PCR Not Detected (Not Detected); CSF HAEMPHILUS INFLUENZAE PCR Not Detected (Not Detected); CSF HERPES SIMPLEX VIRUS 2 PCR Not Detected (Not Detected); CSF HERPES SIMPLEX VIRUS1 PCR Not Detected (Not Detected); CSF HUMAN HERPES VIRUS 6 PCR Not Detected (Not Detected); CSF HUMAN PARECHOVIRUS PCR Not Detected (Not Detected); CSF LISTERIA MONOCYTOGENES PCR Not Detected (Not Detected); CSF N.MENINGITIDIS PCR Not Detected (Not Detected); CSF STREP. AGALACTIAE PCR Not Detected (Not Detected); CSF STREP. PNEUMONIAE PCR Not Detected (Not Detected); CSF VARICELLA ZOSTER V PCR Not Detected (Not Detected)
[2023-09-30] MEDS: ACETAMINOPHEN 325 MG TABLET PO PRN (11:55)
[2023-09-30] MEDS ORDERED: LIDOCAINE 2% 11 ML JELLY TP ONE (12:00)
[2023-09-30] MEDS ORDERED: ACETYLCYSTEINE 10% 100 MG/ML 30 ML ORAL SOLUTION PO ONE (12:00)
[2023-09-30] MEDS: RINGERS SOLUTION,LACTATED 1,000 ML IV SCH (13:50)
[2023-09-30] MEDS: POTASSIUM CHL 10 MEQ/WATER 50 ML IV PRN (21:11)
[2023-09-30] MEDS: TraZODone HCL 100 MG TABLET PO PRN (21:11)
[2023-10-01] VITALS (19 sets, daily range): BP systolic 97–132; BP diastolic 60–77; PULSE 44–104; RESP 13–35; TEMP 98.5–99.9; O2SAT 94–99
[2023-10-01] MEDS: POTASSIUM CHL 10 MEQ/WATER 50 ML IV PRN ×4 (01:16→16:24)
[2023-10-01] MEDS: FentaNYL CIT 1000MCG/0.9% NACL 100 ML IV PRN ×3 (02:14→18:30)
[2023-10-01] MEDS: PROPOFOL 1000 MG/ISO-OSM 100 ML IV PRN ×5 (02:44→21:35)
[2023-10-01] MEDS: AMPICILLIN SODIUM/SULBACTAM NA 3 GM in SODIUM CHLORIDE 0.9% 100 ML IV SCH ×2 (03:50→09:41)
[2023-10-01 06:00] LABS: BASOPHILS % (AUTO) 0.1 % (0.0-2.0); HEMATOCRIT 29.2 % (41-53); HEMOGLOBIN 10.1 g/dL (13.5-17.5); LYMPHOCYTES # (AUTO) 1.6 K/uL (1.0-4.8); LYMPHOCYTES % (AUTO) 15.1 % (22.0-44.0); MEAN CORPUSCULAR HEMOGLOBIN 29.4 pg (26.0-34.0); MEAN CORPUSCULAR HGB CONC 34.5 G/dL (31.0-37.0); MEAN CORPUSCULAR VOLUME 85 fL (80-100); MONOCYTES # (AUTO) 0.9 K/uL (0.1-1.0); MONOCYTES % (AUTO) 8.3 % (2.0-9.0); NEUTROPHILS # (AUTO) 7.9 K/uL (1.8-7.7); NEUTROPHILS % (AUTO) 74.5 % (40.0-70.0); PLATELET COUNT (AUTO) 299 K/uL (150-450); RED BLOOD CELL COUNT(AUTO) 3.43 MIL/uL (4.50-5.90); RED CELL DISTRIBUTION WIDTH 14.3 % (11.5-14.5); WHITE BLOOD COUNT (AUTO) 10.6 K/uL (4.5-11.0)
[2023-10-01] MEDS: QUEtiapine FUMARATE 50 MG ER TABLET PO SCH ×2 (08:11→15:21)
[2023-10-01] MEDS: PANTOPRAZOLE SODIUM 40 MG/VIAL IVP SCH ×2 (08:11→20:45)
[2023-10-01] MEDS: FAMOTIDINE 20 MG TABLET PO SCH (08:11)
[2023-10-01] MEDS ORDERED: SODIUM CHLORIDE 0.9% 250 ML IV ONE (08:51)
[2023-10-01] MEDS: RINGERS SOLUTION,LACTATED 1,000 ML IV SCH (09:41)
[2023-10-01] MEDS: DEXMEDETOMIDINE HCL 400 MCG in SODIUM CHLORIDE 0.9% 96 ML IV PRN ×3 (09:45→18:29)
[2023-10-01] MEDS: MIDAZOLAM HCL 100 MG in SODIUM CHLORIDE 0.9% 180 ML IV PRN (09:46)
[2023-10-01] MEDS ORDERED: HEPARIN SODIUM,PORCINE 1,000 UNITS/ML VIAL IVP ONE (12:00)
[2023-10-01] MEDS: IPRATROPIUM BROMIDE 0.5 MG/2.5 ML NEB SOLUTION NEB PRN ×2 (14:33→19:25)
[2023-10-01] MEDS: ACETYLCYSTEINE 10% 100 MG/ML 4 ML NEB SOLUTION NEB SCH ×2 (14:33→19:25)
[2023-10-01] MEDS: ALBUTEROL SULFATE 2.5 MG/0.5 ML NEB SOLUTION NEB PRN ×2 (14:33→19:25)
[2023-10-01] MEDS: MetroNIDAZOLE 500 MG TABLET PO SCH (15:21)
[2023-10-01] MEDS: NAFCILLIN SODIUM 2 GM in DEXTROSE 5%-WATER 100 ML IV SCH ×2 (15:22→20:44)
[2023-10-01] MEDS: ACETAMINOPHEN 325 MG TABLET PO PRN ×2 (15:29→20:45)
[2023-10-01] MEDS: TraZODone HCL 100 MG TABLET PO PRN (20:45)
[2023-10-01] MEDS: LORazepam 2 MG/ML VIAL IVP PRN (20:46)
[2023-10-01] MEDS: QUEtiapine FUMARATE 25 MG TABLET PO SCH (20:52)
[2023-10-02] VITALS (25 sets, daily range): BP systolic 102–145; BP diastolic 55–87; PULSE 82–139; RESP 22–40; TEMP 98.8–100.7; O2SAT 93–99
[2023-10-02] MEDS: NAFCILLIN SODIUM 2 GM in DEXTROSE 5%-WATER 100 ML IV SCH ×4 (00:28→12:26)
[2023-10-02] MEDS: MetroNIDAZOLE 500 MG TABLET PO SCH ×3 (00:29→16:30)
[2023-10-02] MEDS: DEXMEDETOMIDINE HCL 400 MCG in SODIUM CHLORIDE 0.9% 96 ML IV PRN ×2 (00:50→23:16)
[2023-10-02] MEDS: FentaNYL CIT 1000MCG/0.9% NACL 100 ML IV PRN ×3 (01:01→20:14)
[2023-10-02] MEDS: PROPOFOL 1000 MG/ISO-OSM 100 ML IV PRN ×6 (01:04→21:09)
[2023-10-02] MEDS: ALBUTEROL SULFATE 2.5 MG/0.5 ML NEB SOLUTION NEB PRN ×4 (02:16→20:10)
[2023-10-02] MEDS: ACETYLCYSTEINE 10% 100 MG/ML 4 ML NEB SOLUTION NEB SCH ×4 (02:16→20:10)
[2023-10-02] MEDS: IPRATROPIUM BROMIDE 0.5 MG/2.5 ML NEB SOLUTION NEB PRN ×4 (02:16→20:10)
[2023-10-02] MEDS: LORazepam 2 MG/ML VIAL IVP PRN ×2 (03:53→20:13)
[2023-10-02] MEDS: RINGERS SOLUTION,LACTATED 1,000 ML IV SCH (03:59)
[2023-10-02] MEDS: ACETAMINOPHEN 325 MG TABLET PO PRN ×2 (04:04→21:56)
[2023-10-02] MEDS: QUEtiapine FUMARATE 25 MG TABLET PO SCH ×3 (08:48→20:13)
[2023-10-02] MEDS: PANTOPRAZOLE SODIUM 40 MG/VIAL IVP SCH ×2 (08:48→20:39)
[2023-10-02] MEDS: FAMOTIDINE 20 MG TABLET PO SCH (08:49)
[2023-10-02] MEDS: PIPERACILLIN/TAZO 3.375 GM/D5W 50 ML IV SCH ×2 (16:30→20:13)
[2023-10-02] MEDS: TraZODone HCL 100 MG TABLET PO PRN (23:14)
[2023-10-03] VITALS (24 sets, daily range): BP systolic 93–140; BP diastolic 54–78; PULSE 85–124; RESP 23–35; TEMP 98.8–100.5; O2SAT 88–100
[2023-10-03] MEDS: LORazepam 2 MG/ML VIAL IVP PRN ×5 (00:06→18:31)
[2023-10-03] MEDS: MIDAZOLAM HCL 100 MG in SODIUM CHLORIDE 0.9% 180 ML IV PRN ×3 (00:10→22:37)
[2023-10-03] MEDS: PROPOFOL 1000 MG/ISO-OSM 100 ML IV PRN ×7 (00:31→22:36)
[2023-10-03] MEDS: ALBUTEROL SULFATE 2.5 MG/0.5 ML NEB SOLUTION NEB PRN ×4 (01:38→19:30)
[2023-10-03] MEDS: IPRATROPIUM BROMIDE 0.5 MG/2.5 ML NEB SOLUTION NEB PRN ×4 (01:38→19:30)
[2023-10-03] MEDS: ACETYLCYSTEINE 10% 100 MG/ML 4 ML NEB SOLUTION NEB SCH ×4 (01:39→19:32)
[2023-10-03] MEDS: FentaNYL CIT 1000MCG/0.9% NACL 100 ML IV PRN ×4 (01:41→19:55)
[2023-10-03] MEDS: RINGERS SOLUTION,LACTATED 1,000 ML IV SCH ×2 (02:42→23:05)
[2023-10-03] MEDS: PIPERACILLIN/TAZO 3.375 GM/D5W 50 ML IV SCH ×2 (03:59→09:39)
[2023-10-03] MEDS: ACETAMINOPHEN 325 MG TABLET PO PRN ×2 (05:25→20:49)
[2023-10-03 05:55] LABS: BASOPHILS % (AUTO) 0.1 % (0.0-2.0); EOSINOPHILS % (AUTO) 1.5 % (1.0-6.0); HEMATOCRIT 28.7 % (41-53); HEMOGLOBIN 9.6 g/dL (13.5-17.5); LYMPHOCYTES # (AUTO) 1.1 K/uL (1.0-4.8); LYMPHOCYTES % (AUTO) 6.3 % (22.0-44.0); MEAN CORPUSCULAR HEMOGLOBIN 28.9 pg (26.0-34.0); MEAN CORPUSCULAR HGB CONC 33.3 G/dL (31.0-37.0); MEAN CORPUSCULAR VOLUME 87 fL (80-100); MONOCYTES # (AUTO) 1.1 K/uL (0.1-1.0); MONOCYTES % (AUTO) 6.4 % (2.0-9.0); NEUTROPHILS # (AUTO) 14.8 K/uL (1.8-7.7); PLATELET COUNT (AUTO) 311 K/uL (150-450); RED BLOOD CELL COUNT(AUTO) 3.32 MIL/uL (4.50-5.90); RED CELL DISTRIBUTION WIDTH 14.5 % (11.5-14.5); WHITE BLOOD COUNT (AUTO) 17.3 K/uL (4.5-11.0)
[2023-10-03 06:02] LABS: ANION GAP 8 mmol/L (8-16); CALCIUM, TOTAL 8.8 mg/dL (8.8-10.5); CARBON DIOXIDE 29 mmol/L (22-29); CHLORIDE 106 mmol/L (98-107); CREATININE 0.53 mg/dL (0.60-1.30); GLOMERULAR FILTR. RATE CALC > 60 mL/min (>60); GLUCOSE,RANDOM 112 mg/dL (70-110); POTASSIUM 3.8 mmol/L (3.5-5.1); SODIUM SERUM 143 mmol/L (136-145); UREA NITROGEN, BLOOD 15 mg/dL (7-18)
[2023-10-03 06:47] LABS: NEUTROPHILS % (AUTO) 85.7 % (40.0-70.0)
[2023-10-03] MEDS: PANTOPRAZOLE SODIUM 40 MG/VIAL IVP SCH ×2 (08:06→20:51)
[2023-10-03] MEDS: QUEtiapine FUMARATE 25 MG TABLET PO SCH ×3 (08:07→20:49)
[2023-10-03] MEDS: FAMOTIDINE 20 MG TABLET PO SCH (08:07)
[2023-10-03] MEDS: DEXMEDETOMIDINE HCL 400 MCG in SODIUM CHLORIDE 0.9% 96 ML IV PRN ×2 (08:40→19:50)
[2023-10-03] MEDS: LEVOFLOXACIN 750 MG/D5% WATER 150 ML IV SCH (14:16)
[2023-10-03] MEDS: NAFCILLIN SODIUM 2 GM in DEXTROSE 5%-WATER 100 ML IV SCH ×3 (14:17→23:05)
[2023-10-03 16:26] LABS: ABG A-A DIFF O2 252.6 mmHg (10-20.0); ABG BASE EXCESS 3.6 mmol/L (-2.0-3.0); ABG CARBOXYHEMOGLOBIN 0.3 % (0.0-1.5); ABG HCO3 27.5 mmol/L (22.0-26.0); ABG METHEMOGLOBIN 0.3 % (0.0-1.5); ABG OXYGEN CONTENT 12.8 mL/dL (15.0-23.0); ABG OXYHEMOGLOBIN 91.4 % (94.0-100.0); ABG PCO2 38 mmHg (35-45); ABG PH 7.471 (7.35-7.450); ABG TOTAL HEMOGLOBIN 9.9 G/dL (12.0-18.0); ALLEN TEST, BLOOD GAS Positive; O2 DEVICE,BLOOD GAS VENTILATOR (ROOM AIR); PO2, ARTERIAL BG 61.2 mmHg (88.0-96.0); SITE, BLOOD GAS LFT RADIAL; SOURCE, BLOOD GAS ARTERIAL; TEMPERATURE, FAHRENHEIT, BG 98.2 FAHREN (96.0-98.6); VT, ABG 450 ml
[2023-10-03 16:27] LABS: PEEP,BG 4 cm H2O
[2023-10-03] MEDS: MetroNIDAZOLE 500 MG TABLET PO SCH (16:28)
[2023-10-03] MEDS ORDERED: SODIUM CHLORIDE 0.9% 250 ML IV ONE (23:09)
[2023-10-04] VITALS (26 sets, daily range): BP systolic 99–131; BP diastolic 51–70; PULSE 76–116; RESP 16–33; TEMP 98.1–100.4; O2SAT 90–100
[2023-10-04] MEDS: MetroNIDAZOLE 500 MG TABLET PO SCH ×3 (00:45→15:03)
[2023-10-04] MEDS: FentaNYL CIT 1000MCG/0.9% NACL 100 ML IV PRN ×5 (01:07→21:36)
[2023-10-04] MEDS: ACETYLCYSTEINE 10% 100 MG/ML 4 ML NEB SOLUTION NEB SCH ×4 (01:26→19:28)
[2023-10-04] MEDS: IPRATROPIUM BROMIDE 0.5 MG/2.5 ML NEB SOLUTION NEB PRN ×4 (01:26→19:28)
[2023-10-04] MEDS: ALBUTEROL SULFATE 2.5 MG/0.5 ML NEB SOLUTION NEB PRN ×4 (01:26→19:28)
[2023-10-04] MEDS: PROPOFOL 1000 MG/ISO-OSM 100 ML IV PRN ×6 (03:16→22:33)
[2023-10-04] MEDS: NAFCILLIN SODIUM 2 GM in DEXTROSE 5%-WATER 100 ML IV SCH ×6 (03:16→22:35)
[2023-10-04 05:12] LABS: BASOPHILS % (AUTO) 0.2 % (0.0-2.0); HEMATOCRIT 25.4 % (41-53); HEMOGLOBIN 8.8 g/dL (13.5-17.5); LYMPHOCYTES # (AUTO) 1.2 K/uL (1.0-4.8); LYMPHOCYTES % (AUTO) 10.4 % (22.0-44.0); MEAN CORPUSCULAR HEMOGLOBIN 29.2 pg (26.0-34.0); MEAN CORPUSCULAR HGB CONC 34.4 G/dL (31.0-37.0); MEAN CORPUSCULAR VOLUME 85 fL (80-100); MONOCYTES # (AUTO) 0.6 K/uL (0.1-1.0); MONOCYTES % (AUTO) 5.7 % (2.0-9.0); NEUTROPHILS % (AUTO) 80.7 % (40.0-70.0); PLATELET COUNT (AUTO) 261 K/uL (150-450); RED CELL DISTRIBUTION WIDTH 14.8 % (11.5-14.5); WHITE BLOOD COUNT (AUTO) 11.1 K/uL (4.5-11.0)
[2023-10-04] MEDS: DEXMEDETOMIDINE HCL 400 MCG in SODIUM CHLORIDE 0.9% 96 ML IV PRN ×2 (06:32→17:06)
[2023-10-04] MEDS: PANTOPRAZOLE SODIUM 40 MG/VIAL IVP SCH ×2 (08:07→21:04)
[2023-10-04] MEDS: FAMOTIDINE 20 MG TABLET PO SCH (08:07)
[2023-10-04] MEDS: LORazepam 2 MG/ML VIAL IVP PRN ×2 (08:07→13:21)
[2023-10-04] MEDS: QUEtiapine FUMARATE 25 MG TABLET PO SCH ×3 (08:08→21:04)
[2023-10-04 09:58] LABS: ALANINE AMINOTRANSFERASE 51 U/L (12-78); ALBUMIN 1.9 g/dL (3.4-5.0); ALKALINE PHOSPHATASE 75 U/L (46-116); ANION GAP 6 mmol/L (8-16); ASPARTATE AMINOTRANSFERASE 25 U/L (15-37); BILIRUBIN,TOTAL 0.3 mg/dL (0.1-1.0); CALCIUM, TOTAL 8.4 mg/dL (8.8-10.5); CARBON DIOXIDE 29 mmol/L (22-29); CHLORIDE 106 mmol/L (98-107); CREATININE 0.47 mg/dL (0.60-1.30); GLOMERULAR FILTR. RATE CALC > 60 mL/min (>60); GLUCOSE,RANDOM 125 mg/dL (70-110); POTASSIUM 3.9 mmol/L (3.5-5.1); SODIUM SERUM 141 mmol/L (136-145); UREA NITROGEN, BLOOD 14 mg/dL (7-18)
[2023-10-04] MEDS: LEVOFLOXACIN 750 MG/D5% WATER 150 ML IV SCH (13:24)
[2023-10-04] MEDS ORDERED: SODIUM CHLORIDE 0.9% 250 ML IV ONE (16:02)
[2023-10-04] MEDS: RINGERS SOLUTION,LACTATED 1,000 ML IV SCH (17:08)
[2023-10-04] MEDS: MIDAZOLAM HCL 100 MG in SODIUM CHLORIDE 0.9% 180 ML IV PRN (22:43)
[2023-10-05] VITALS (18 sets, daily range): BP systolic 87–137; BP diastolic 37–86; PULSE 83–103; RESP 11–25; TEMP 96–100.6; O2SAT 94–100
[2023-10-05] MEDS: MetroNIDAZOLE 500 MG TABLET PO SCH ×4 (00:08→23:57)
[2023-10-05] MEDS: DEXMEDETOMIDINE HCL 400 MCG in SODIUM CHLORIDE 0.9% 96 ML IV PRN ×3 (00:10→22:29)
[2023-10-05] MEDS: ALBUTEROL SULFATE 2.5 MG/0.5 ML NEB SOLUTION NEB PRN ×3 (01:26→20:23)
[2023-10-05] MEDS: IPRATROPIUM BROMIDE 0.5 MG/2.5 ML NEB SOLUTION NEB PRN ×3 (01:26→20:23)
[2023-10-05] MEDS: ACETYLCYSTEINE 10% 100 MG/ML 4 ML NEB SOLUTION NEB SCH ×4 (01:26→20:23)
[2023-10-05] MEDS: PROPOFOL 1000 MG/ISO-OSM 100 ML IV PRN ×3 (02:13→09:44)
[2023-10-05] MEDS: NAFCILLIN SODIUM 2 GM in DEXTROSE 5%-WATER 100 ML IV SCH ×6 (02:43→22:28)
[2023-10-05] MEDS: FentaNYL CIT 1000MCG/0.9% NACL 100 ML IV PRN ×2 (04:01→09:52)
[2023-10-05 06:03] LABS: BASOPHILS % (AUTO) 0.6 % (0.0-2.0); EOSINOPHILS % (AUTO) 4.7 % (1.0-6.0); HEMATOCRIT 22.1 % (41-53); HEMOGLOBIN 7.6 g/dL (13.5-17.5); LYMPHOCYTES # (AUTO) 0.9 K/uL (1.0-4.8); LYMPHOCYTES % (AUTO) 14.8 % (22.0-44.0); MEAN CORPUSCULAR HEMOGLOBIN 29.5 pg (26.0-34.0); MEAN CORPUSCULAR HGB CONC 34.6 G/dL (31.0-37.0); MEAN CORPUSCULAR VOLUME 85 fL (80-100); MONOCYTES # (AUTO) 0.4 K/uL (0.1-1.0); MONOCYTES % (AUTO) 7.7 % (2.0-9.0); NEUTROPHILS # (AUTO) 4.2 K/uL (1.8-7.7); NEUTROPHILS % (AUTO) 72.2 % (40.0-70.0); PLATELET COUNT (AUTO) 240 K/uL (150-450); RED BLOOD CELL COUNT(AUTO) 2.59 MIL/uL (4.50-5.90); RED CELL DISTRIBUTION WIDTH 14.7 % (11.5-14.5); WHITE BLOOD COUNT (AUTO) 5.8 K/uL (4.5-11.0)
[2023-10-05 06:09] LABS: ANION GAP 7 mmol/L (8-16); CALCIUM, TOTAL 7.6 mg/dL (8.8-10.5); CARBON DIOXIDE 29 mmol/L (22-29); CHLORIDE 108 mmol/L (98-107); CREATININE 0.44 mg/dL (0.60-1.30); GLOMERULAR FILTR. RATE CALC > 60 mL/min (>60); GLUCOSE,RANDOM 107 mg/dL (70-110); POTASSIUM 3.3 mmol/L (3.5-5.1); SODIUM SERUM 144 mmol/L (136-145); UREA NITROGEN, BLOOD 13 mg/dL (7-18)
[2023-10-05] MEDS: POTASSIUM CHL 10 MEQ/WATER 50 ML IV PRN ×3 (06:44→11:05)
[2023-10-05] MEDS: PANTOPRAZOLE SODIUM 40 MG/VIAL IVP SCH ×2 (08:24→20:58)
[2023-10-05] MEDS: FAMOTIDINE 20 MG TABLET PO SCH (08:25)
[2023-10-05] MEDS: QUEtiapine FUMARATE 25 MG TABLET PO SCH ×3 (08:25→21:00)
[2023-10-05] MEDS: RINGERS SOLUTION,LACTATED 1,000 ML IV SCH (13:32)
[2023-10-05] MEDS: LEVOFLOXACIN 750 MG/D5% WATER 150 ML IV SCH (13:32)
[2023-10-05 13:48] LABS: ABG CARBOXYHEMOGLOBIN 0.3 % (0.0-1.5); ABG HCO3 29.6 mmol/L (22.0-26.0); ABG OXYGEN CONTENT 14.6 mL/dL (15.0-23.0); ABG OXYGEN SATURATION 96.5 % (95.0-98.0); ABG OXYHEMOGLOBIN 96.2 % (94.0-100.0); ABG PCO2 39 mmHg (35-45); ABG PH 7.492 (7.35-7.450); ABG TOTAL HEMOGLOBIN 10.7 G/dL (12.0-18.0); PO2, ARTERIAL BG 86.3 mmHg (88.0-96.0); SOURCE, BLOOD GAS ARTERIAL; TEMPERATURE, FAHRENHEIT, BG 100.3 FAHREN (96.0-98.6)
[2023-10-05 13:49] LABS: ALLEN TEST, BLOOD GAS Positive; SITE, BLOOD GAS RT RADIAL
[2023-10-05 13:50] LABS: O2 DEVICE,BLOOD GAS VENTILATOR (ROOM AIR)
[2023-10-05 13:51] LABS: PRESSURE SUPPORT, BG 5 cm H2O; SPONTANEOUS VT, BG 883 ml; VENT MODE, BG SPONTANEOUS (ROOM AIR)
[2023-10-05 13:52] LABS: PEEP,BG 4 cm H2O
[2023-10-06] VITALS (16 sets, daily range): BP systolic 112–135; BP diastolic 64–79; PULSE 86–106; RESP 17–28; TEMP 98.4–100.7; O2SAT 93–98
[2023-10-06] MEDS: ACETYLCYSTEINE 10% 100 MG/ML 4 ML NEB SOLUTION NEB SCH ×4 (01:54→20:02)
[2023-10-06] MEDS: IPRATROPIUM BROMIDE 0.5 MG/2.5 ML NEB SOLUTION NEB PRN ×4 (01:54→20:02)
[2023-10-06] MEDS: ALBUTEROL SULFATE 2.5 MG/0.5 ML NEB SOLUTION NEB PRN ×4 (01:54→20:02)
[2023-10-06] MEDS: NAFCILLIN SODIUM 2 GM in DEXTROSE 5%-WATER 100 ML IV SCH ×6 (02:37→23:55)
[2023-10-06] MEDS: MetroNIDAZOLE 500 MG TABLET PO SCH (07:54)
[2023-10-06] MEDS: FAMOTIDINE 20 MG TABLET PO SCH (07:54)
[2023-10-06] MEDS: PANTOPRAZOLE SODIUM 40 MG/VIAL IVP SCH ×2 (07:54→21:53)
[2023-10-06] MEDS: QUEtiapine FUMARATE 25 MG TABLET PO SCH ×3 (07:54→21:00)
[2023-10-06 08:29] LABS: BASOPHILS % (AUTO) 0.4 % (0.0-2.0); EOSINOPHILS % (AUTO) 0.3 % (1.0-6.0); HEMATOCRIT 27.1 % (41-53); HEMOGLOBIN 9.5 g/dL (13.5-17.5); MEAN CORPUSCULAR HEMOGLOBIN 29.7 pg (26.0-34.0); MEAN CORPUSCULAR HGB CONC 34.9 G/dL (31.0-37.0); MEAN CORPUSCULAR VOLUME 85 fL (80-100); MONOCYTES # (AUTO) 0.6 K/uL (0.1-1.0); MONOCYTES % (AUTO) 9.4 % (2.0-9.0); NEUTROPHILS % (AUTO) 74.9 % (40.0-70.0); PLATELET COUNT (AUTO) 378 K/uL (150-450); RED BLOOD CELL COUNT(AUTO) 3.19 MIL/uL (4.50-5.90); RED CELL DISTRIBUTION WIDTH 14.7 % (11.5-14.5); WHITE BLOOD COUNT (AUTO) 6.7 K/uL (4.5-11.0)
[2023-10-06 08:54] LABS: ALANINE AMINOTRANSFERASE 39 U/L (12-78); ALKALINE PHOSPHATASE 72 U/L (46-116); ANION GAP 10 mmol/L (8-16); ASPARTATE AMINOTRANSFERASE 24 U/L (15-37); BILIRUBIN,TOTAL 0.4 mg/dL (0.1-1.0); CALCIUM, TOTAL 8.6 mg/dL (8.8-10.5); CARBON DIOXIDE 23 mmol/L (22-29); CHLORIDE 107 mmol/L (98-107); CREATININE 0.51 mg/dL (0.60-1.30); GLOMERULAR FILTR. RATE CALC > 60 mL/min (>60); GLUCOSE,RANDOM 105 mg/dL (70-110); POTASSIUM 3.5 mmol/L (3.5-5.1); SODIUM SERUM 140 mmol/L (136-145); TOTAL PROTEIN, SERUM 6.3 g/dL (6.4-8.2); UREA NITROGEN, BLOOD 17 mg/dL (7-18)
[2023-10-06] MEDS: RINGERS SOLUTION,LACTATED 1,000 ML IV SCH (09:52)
[2023-10-06] MEDS: LEVOFLOXACIN 750 MG/D5% WATER 150 ML IV SCH (13:35)
[2023-10-06 19:35] LABS: C.DIFF GDH ANTIGEN, Stool Negative (Negative); C.DIFF TOXINS A&B, Stool Negative (Negative)
[2023-10-06] MEDS: CHLORHEXIDINE GLUCONATE 2% TOWELETTE [2'S/6'S] TP SCH (23:51)
[2023-10-07] VITALS (14 sets, daily range): BP systolic 122–143; BP diastolic 67–78; PULSE 80–101; RESP 2–28; TEMP 97.8–100; O2SAT 90–99
[2023-10-07] MEDS: ALBUTEROL SULFATE 2.5 MG/0.5 ML NEB SOLUTION NEB PRN ×5 (02:46→19:43)
[2023-10-07] MEDS: IPRATROPIUM BROMIDE 0.5 MG/2.5 ML NEB SOLUTION NEB PRN ×5 (02:46→19:43)
[2023-10-07] MEDS: ACETYLCYSTEINE 10% 100 MG/ML 4 ML NEB SOLUTION NEB SCH ×4 (02:46→19:42)
[2023-10-07] MEDS: NAFCILLIN SODIUM 2 GM in DEXTROSE 5%-WATER 100 ML IV SCH ×6 (05:08→22:41)
[2023-10-07] MEDS: RINGERS SOLUTION,LACTATED 1,000 ML IV SCH (05:12)
[2023-10-07] MEDS: FAMOTIDINE 20 MG TABLET PO SCH (09:00)
[2023-10-07] MEDS: QUEtiapine FUMARATE 25 MG TABLET PO SCH ×3 (09:00→21:00)
[2023-10-07] MEDS: PANTOPRAZOLE SODIUM 40 MG/VIAL IVP SCH ×2 (09:36→21:19)
[2023-10-07 12:04] LABS: BASOPHILS % (AUTO) 0.6 % (0.0-2.0); EOSINOPHILS % (AUTO) 0.3 % (1.0-6.0); HEMATOCRIT 27.1 % (41-53); HEMOGLOBIN 9.4 g/dL (13.5-17.5); LYMPHOCYTES # (AUTO) 1.4 K/uL (1.0-4.8); LYMPHOCYTES % (AUTO) 17.7 % (22.0-44.0); MEAN CORPUSCULAR HEMOGLOBIN 29.8 pg (26.0-34.0); MEAN CORPUSCULAR HGB CONC 34.6 G/dL (31.0-37.0); MEAN CORPUSCULAR VOLUME 86 fL (80-100); MONOCYTES % (AUTO) 12.7 % (2.0-9.0); NEUTROPHILS # (AUTO) 5.5 K/uL (1.8-7.7); NEUTROPHILS % (AUTO) 68.7 % (40.0-70.0); PLATELET COUNT (AUTO) 408 K/uL (150-450); RED BLOOD CELL COUNT(AUTO) 3.14 MIL/uL (4.50-5.90)
[2023-10-07 12:16] LABS: ALANINE AMINOTRANSFERASE 39 U/L (12-78); ALBUMIN 2.3 g/dL (3.4-5.0); ALKALINE PHOSPHATASE 65 U/L (46-116); ANION GAP 11 mmol/L (8-16); ASPARTATE AMINOTRANSFERASE 23 U/L (15-37); BILIRUBIN,TOTAL 0.4 mg/dL (0.1-1.0); CALCIUM, TOTAL 8.9 mg/dL (8.8-10.5); CARBON DIOXIDE 23 mmol/L (22-29); CHLORIDE 109 mmol/L (98-107); CREATININE 0.51 mg/dL (0.60-1.30); GLOMERULAR FILTR. RATE CALC > 60 mL/min (>60); GLUCOSE,RANDOM 113 mg/dL (70-110); POTASSIUM 3.3 mmol/L (3.5-5.1); SODIUM SERUM 143 mmol/L (136-145); TOTAL PROTEIN, SERUM 6.6 g/dL (6.4-8.2); UREA NITROGEN, BLOOD 14 mg/dL (7-18)
[2023-10-07] MEDS: LEVOFLOXACIN 750 MG/D5% WATER 150 ML IV SCH (14:55)
[2023-10-07 15:31] LABS: GLUCOMETER DEV NAME(LOC) 5N.2C; GLUCOSE,POINT OF CARE 102 MG/DL (70-110)
[2023-10-07 17:06] LABS: ADENOVIRUS F 40/41, PCR STOOL Not Detected (Not Detected); ASTROVIRUS, PCR STOOL Not Detected (Not Detected); C.DIFFICILE TOXIN A/B PCR Not Detected (Not Detected); CAMPYLOBACTER PCR,STOOL Not Detected (Not Detected); CRYPTOSPORIDIUM PCR, STOOL Not Detected (Not Detected); CYCLOSPORA CAYETANENSIS, PCR Not Detected (Not Detected); ENTAMOEBA HISTOLYTICA,PCR ST Not Detected (Not Detected); ENTEROAGGREGATIVE E.COLI PCR Not Detected (Not Detected); ENTEROPATHOGENIC E.COLI PCR Not Detected (Not Detected); ENTEROTOXIGENIC E.COLI PCR Not Detected (Not Detected); GIARDIA LAMBLIA, PCR STOOL Not Detected (Not Detected); NOROVIRUS GI/GII, PCR-STOOL Not Detected (Not Detected); PLESIOMONAS SHIGELLOIDES,PCR Not Detected (Not Detected); ROTAVIRUS A, PCR-STOOL Not Detected (Not Detected); SALMONELLA PCR,STOOL Not Detected (Not Detected); SAPOVIRUS, PCR-STOOL Not Detected (Not Detected); SHIGA-TOXIN E.COLI PCR Not Detected (Not Detected); SHIGELLA/ENTEROINVAS ECOL, PCR Not Detected (Not Detected); VIBRIO CHOLERAE PCR,STOOL Not Detected (Not Detected); VIBRIO PCR,STOOL Not Detected (Not Detected); Y. ENTEROCOLITICA PCR,STOOL Not Detected (Not Detected)
[2023-10-07] MEDS ORDERED: RIVAROXABAN 15 MG TABLET PO SCH (18:00)
[2023-10-07] MEDS: CHLORHEXIDINE GLUCONATE 2% TOWELETTE [2'S/6'S] TP SCH (22:41)
[2023-10-07] MEDS ORDERED: SODIUM CHLORIDE 0.9% 250 ML IV ONE (23:53)
[2023-10-07] MEDS: HEPARIN SODIUM,PORCINE 5,000 UNITS/ML VIAL SQ SCH (23:57)
[2023-10-08] VITALS (15 sets, daily range): BP systolic 128–146; BP diastolic 72–84; PULSE 76–104; RESP 18–28; TEMP 97.9–98.6; O2SAT 95–99
[2023-10-08] MEDS: POTASSIUM CHL 10 MEQ/WATER 50 ML IV PRN ×3 (00:06→02:28)
[2023-10-08] MEDS: ALBUTEROL SULFATE 2.5 MG/0.5 ML NEB SOLUTION NEB PRN ×4 (02:36→20:20)
[2023-10-08] MEDS: IPRATROPIUM BROMIDE 0.5 MG/2.5 ML NEB SOLUTION NEB PRN ×4 (02:36→20:20)
[2023-10-08] MEDS: ACETYLCYSTEINE 10% 100 MG/ML 4 ML NEB SOLUTION NEB SCH ×4 (02:36→20:21)
[2023-10-08] MEDS: NAFCILLIN SODIUM 2 GM in DEXTROSE 5%-WATER 100 ML IV SCH ×5 (04:01→20:24)
[2023-10-08] MEDS: RINGERS SOLUTION,LACTATED 1,000 ML IV SCH (07:46)
[2023-10-08] MEDS: QUEtiapine FUMARATE 25 MG TABLET PO SCH ×3 (09:00→20:24)
[2023-10-08] MEDS: HEPARIN SODIUM,PORCINE 5,000 UNITS/ML VIAL SQ SCH (09:37)
[2023-10-08] MEDS: PANTOPRAZOLE SODIUM 40 MG/VIAL IVP SCH ×2 (09:37→20:24)
[2023-10-08] MEDS: LEVOFLOXACIN 750 MG/D5% WATER 150 ML IV SCH (14:31)
[2023-10-08] MEDS: NYSTATIN 15 GM POWDER BOTTLE TP SCH ×2 (14:53→20:25)
[2023-10-08] MEDS: RIVAROXABAN 15 MG TABLET PO SCH (17:57)
[2023-10-08] MEDS: CHLORHEXIDINE GLUCONATE 2% TOWELETTE [2'S/6'S] TP SCH (20:26)
[2023-10-09] VITALS (10 sets, daily range): BP systolic 113–151; BP diastolic 68–88; PULSE 71–104; RESP 16–20; TEMP 97.7–98.6; O2SAT 80–95
[2023-10-09] MEDS: ACETYLCYSTEINE 10% 100 MG/ML 4 ML NEB SOLUTION NEB SCH ×3 (02:00→12:06)
[2023-10-09] MEDS: NAFCILLIN SODIUM 2 GM in DEXTROSE 5%-WATER 100 ML IV SCH ×6 (03:00→18:00)
[2023-10-09] MEDS: RINGERS SOLUTION,LACTATED 1,000 ML IV SCH ×2 (05:52→13:46)
[2023-10-09] MEDS: ALBUTEROL SULFATE 2.5 MG/0.5 ML NEB SOLUTION NEB PRN ×2 (07:27→12:07)
[2023-10-09] MEDS: QUEtiapine FUMARATE 25 MG TABLET PO SCH ×2 (09:00→16:00)
[2023-10-09] MEDS: PANTOPRAZOLE SODIUM 40 MG/VIAL IVP SCH (09:20)
[2023-10-09] MEDS: RIVAROXABAN 15 MG TABLET PO SCH ×2 (09:20→18:00)
[2023-10-09] MEDS: NYSTATIN 15 GM POWDER BOTTLE TP SCH ×2 (09:21→17:01)
[2023-10-09] MEDS: IPRATROPIUM BROMIDE 0.5 MG/2.5 ML NEB SOLUTION NEB PRN (12:06)
[2023-10-09] MEDS: LEVOFLOXACIN 750 MG/D5% WATER 150 ML IV SCH (15:09)
[2023-10-09] MEDS ORDERED: ACET104 NEB (15:45)
[2023-10-09] MEDS ORDERED: CHLO2TOW (15:47)
[2023-10-09] MEDS ORDERED: LEVO750P7 IV (15:48)
[2023-10-09] MEDS ORDERED: NYST30CR9 TP (15:49)
[2023-10-09] MEDS ORDERED: PANT-31 PO (15:49)
[2023-10-09] MEDS ORDERED: NAFC2VIA IV (15:49)
[2023-10-09] MEDS ORDERED: QUET25TA PO (15:50)
[2023-10-09] MEDS ORDERED: [UNRECOGNIZED DRUG - CODE] IV (15:55)
[2023-10-09] MEDS ORDERED: RIVA15TA PO (15:58)
[2023-10-09] MEDS ORDERED: ACET-784 PO (15:59)
[2023-10-09] MEDS ORDERED: ALBU2.5V39 NEB (16:00)
[2023-10-09] MEDS ORDERED: BISM-157 PO (16:01)
[2023-10-09] MEDS ORDERED: LORA2I IVP (16:03)
[2023-10-09] MEDS ORDERED: MAGN-169 PO (16:03)
[2023-10-09] MEDS ORDERED: ONDA4VIA60 IVP (16:04)
[2023-10-28] MEDS ORDERED: RIVAROXABAN 20 MG TABLET PO SCH (18:00)
[2023-10-30] MEDS ORDERED: RIVAROXABAN 20 MG TABLET PO SCH (18:00)
== END 2023-10-09 18:10 | DRG 870 ==
LOC: EMS 11:07 → ICUN 16:06 → 6S 20:22 → 5N 09-22 12:07 → ICU 09-22 13:55 → 5S 10-06 16:45
PROVIDERS: ADMIT Internal Medicine; ATTEND Internal Medicine
PROC: 0BH17EZ Insertion of Endotracheal Airway into Trachea, Via Natural or Artificial Opening (ICD-10-PCS; principal; 2023-09-22)
PROC: 5A1955Z Respiratory Ventilation, Greater than 96 Consecutive Hours (ICD-10-PCS; 2023-09-22)
PROC: 06HY33Z Insertion of Infusion Device into Lower Vein, Percutaneous Approach (ICD-10-PCS; 2023-09-22)
PROC: 0W9930Z Drainage of Right Pleural Cavity with Drainage Device, Percutaneous Approach (ICD-10-PCS; 2023-09-24)
PROC: 009U3ZX Drainage of Spinal Canal, Percutaneous Approach, Diagnostic (ICD-10-PCS; 2023-09-24)
PROC: 0W9B30Z Drainage of Left Pleural Cavity with Drainage Device, Percutaneous Approach (ICD-10-PCS; 2023-09-24)
PROC: 05HA33Z Insertion of Infusion Device into Left Brachial Vein, Percutaneous Approach (ICD-10-PCS; 2023-09-24)
PROC: 05H933Z Insertion of Infusion Device into Right Brachial Vein, Percutaneous Approach (ICD-10-PCS; 2023-09-24)
PROC: 0DB78ZX Excision of Stomach, Pylorus, Via Natural or Artificial Opening Endoscopic, Diagnostic (ICD-10-PCS; 2023-09-29)
PROC: 0B978ZZ Drainage of Left Main Bronchus, Via Natural or Artificial Opening Endoscopic (ICD-10-PCS; 2023-09-30)
PROC: 0B9L8ZX Drainage of Left Lung, Via Natural or Artificial Opening Endoscopic, Diagnostic (ICD-10-PCS; 2023-09-30)
PROC: 0B9J8ZX Drainage of Left Lower Lung Lobe, Via Natural or Artificial Opening Endoscopic, Diagnostic (ICD-10-PCS; 2023-10-04)
PROC: 0B9F8ZZ Drainage of Right Lower Lung Lobe, Via Natural or Artificial Opening Endoscopic (ICD-10-PCS; 2023-10-04)
PROC: 0B9G8ZZ Drainage of Left Upper Lung Lobe, Via Natural or Artificial Opening Endoscopic (ICD-10-PCS; 2023-10-04)
PROC: 0B938ZZ Drainage of Right Main Bronchus, Via Natural or Artificial Opening Endoscopic (ICD-10-PCS; 2023-10-04)
PROC: 0B978ZZ Drainage of Left Main Bronchus, Via Natural or Artificial Opening Endoscopic (ICD-10-PCS; 2023-10-04)
DX: A41.9 Sepsis, unspecified organism (principal); G93.41 Metabolic encephalopathy; J69.0 Pneumonitis due to inhalation of food and vomit; J96.00 Acute respiratory failure, unspecified whether with hypoxia or hypercapnia; K26.4 Chronic or unspecified duodenal ulcer with hemorrhage; J15.211 Pneumonia due to Methicillin susceptible Staphylococcus aureus; A92.30 West Nile virus infection, unspecified; K29.71 Gastritis, unspecified, with bleeding; N17.9 Acute kidney failure, unspecified; I82.622 Acute embolism and thrombosis of deep veins of left upper extremity; F15.13 Other stimulant abuse with withdrawal; F11.13 Opioid abuse with withdrawal; I31.9 Disease of pericardium, unspecified; Z99.11 Dependence on respirator [ventilator] status; J93.9 Pneumothorax, unspecified; B96.1 Klebsiella pneumoniae [K. pneumoniae] as the cause of diseases classified elsewhere; F17.210 Nicotine dependence, cigarettes, uncomplicated; K44.9 Diaphragmatic hernia without obstruction or gangrene; J98.2 Interstitial emphysema; E87.6 Hypokalemia; F06.1 Catatonic disorder due to known physiological condition; D64.9 Anemia, unspecified; R56.9 Unspecified convulsions; I82.462 Acute embolism and thrombosis of left calf muscular vein
CPT/HCPCS: 31624; 36569; 36600; 70450; 70490; 71045; 71250; 74176; 76937; 77012; 80048; 80053; 80076; 80202; 80307; 81001; 82271; 82728; 82805; 82945; 82962; 83540; 83550; 83605; 83735; 84100; 84132; 84145; 84157; 85014; 85018; 85025; 85610; 85730; 86140; 86738; 86788; 86789; 87015; 87040; 87045; 87070; 87075; 87081; 87086; 87101; 87186; 87205; 87206; 87220; 87324; 87449; 87483; 87507; 87899; 88305; 88312; 88313; 89051; 92526; 92610; 93005; 93308; 93970; 93971; 94002; 94003; 94640; 94660; 95816; 97163; 97530; 99285; C9113; G0480; J0131; J0133; J0295; J0696; J1644; J1956; J2001; J2060; J2250; J2543; J2704; J3370; J3480; J3490; J7030; J7040; J7050; J7060; J7120; Q9967; 36415-L1; 36415-TC; J7613